=== PATIENT | male | born 1955 | race Caucasian/White ===

== ENCOUNTER → 2018-04-23 09:15 | Outpatient (REF) | payer MEDICARE, SELFPAY ==
[2018-04-26 16:37] LABS: Codeine Negative ng/mL (Cutoff: 25); Dihydrocodeine Negative ng/mL (Cutoff: 25); Hydrocodone Negative ng/mL (Cutoff: 25); Hydromorphone Negative ng/mL (Cutoff: 25); Morphine Negative ng/mL (Cutoff: 25); Naloxone Negative ng/mL (Cutoff: 25); Norhydrocodone Negative ng/mL (Cutoff: 25); Noroxycodone 154 ng/mL (Cutoff: 25); Noroxymorphone Negative ng/mL (Cutoff: 25); Opiates Interpretation Positive.
== END ==
LOC: NCHCN 09:15
PROVIDERS: PCP Family Medicine; Visit Provider Family Medicine
DX: G89.29 Other chronic pain (principal); F11.120 Opioid abuse with intoxication, uncomplicated
CPT/HCPCS: 80361

== ENCOUNTER 2019-04-25 15:03 | Outpatient (REF) | payer MEDICARE, SELFPAY ==
[2019-04-25 20:10] LABS: ALT 35 U/L (16-63); AST 26 U/L (15-37); Albumin 2.6 g/dL (3.4-5.0); Alkaline Phosphatase 77 U/L (46-116); Anion Gap 7.5 mmol/L (3-11); BUN 20 mg/dL (7-18); Bilirubin, Total 0.4 mg/dL (0.2-1.0); CO2 27.5 mmol/L (21.0-32.0); Calcium 8.3 mg/dL (8.5-10.1); Chloride 107 mmol/L (98-107); Glucose 83 mg/dL (70-100); Potassium 4.5 mmol/L (3.5-5.1); Sodium 142 mmol/L (136-145); Total Protein 7.2 g/dL (6.4-8.2)
[2019-04-28 11:29] LABS: AFP Tumor Marker 2.5 ng/mL (<8.1)
[2019-04-28 14:48] LABS: HCV RNA Detection Quantitative Undetected IU/mL (UNDECT)
== END 2019-04-25 15:23 ==
LOC: NCHCN 15:03
PROVIDERS: PCP Family Medicine; Visit Provider Family Medicine
DX: B18.2 Chronic viral hepatitis C (principal); Z79.899 Other long term (current) drug therapy
CPT/HCPCS: 80053; 82105; 87522

== ENCOUNTER 2022-01-09 02:59 | Outpatient (RCR) | payer MEDICARE, SELFPAY ==
[2022-01-09 07:57] LABS: Abs Immature Grans 0.03 10^3/uL (0.0-0.06); Absolute Basophil Count 0.01 10^3/uL (0.0-0.2); Absolute Eosinophil Count 0.01 10^3/uL (0.0-0.7); Absolute Lymphocyte Count 2.18 10^3/uL (1.2-3.4); Absolute Monocyte Count 0.62 10^3/uL (0.1-0.8); Absolute Neutrophil Count 6.63 10^3/uL (1.2-6.7); Basophils % 0.1; Eosinophils % 0.1; HCT 44.2 % (40.0-50.0); HGB 14.4 g/dL (13.5-17.5); Immature Grans % 0.3; MCHC 32.6 % (32.0-36.0); MCV 89 fL (80-95); MPV 8.6 fL (8.0-11.0); Monocytes % 6.5; Platelet Count 337 10^3/uL (130-400); RBC 4.97 10^6/uL (4.36-5.78); RDW 13.2 % (11.8-14.1); RDW-SD 43.3 fL; WBC 9.48 10^3/uL (4.4-10.8)
[2022-01-09 08:29] LABS: ALT 18 U/L (16-63); AST 14 U/L (15-37); Albumin 3.6 g/dL (3.4-5.0); Alkaline Phosphatase 98 U/L (46-116); BUN 13 mg/dL (7-18); Bilirubin, Total 0.3 mg/dL (0.2-1.0); CREATININE 0.9 mg/dL (0.70-1.30); Calcium 8.9 mg/dL (8.5-10.1); Chloride 105 mmol/L (98-107); FREE T4 0.93 ng/dL (0.76-1.46); Glucose 118 mg/dL (74-106); Magnesium 2.1 mg/dL (1.8-2.4); Potassium 4.3 mmol/L (3.5-5.1); Sodium 140 mmol/L (136-145); TSH 1.06 uIU/mL (0.36-3.74); Total Protein 7.8 g/dL (6.4-8.2)
[2022-01-09] MEDS: Normal Saline Flush 10 ML SYR IVP (09:17)
== END 2022-01-24 23:59 | disposition home or self-care (01) ==
LOC: INF 02:59
PROVIDERS: PCP Family Medicine; Visit Provider Internal Medicine Medical Oncology
DX: C34.2 Malignant neoplasm of middle lobe, bronchus or lung (principal); Z79.899 Other long term (current) drug therapy; Z45.2 Encounter for adjustment and management of vascular access device
CPT/HCPCS: 36591; 80053; 83735; 84439; 84443; 85025

== ENCOUNTER 2022-02-06 03:03 | Outpatient (RCR) | payer MEDICARE, SELFPAY ==
[2022-01-25] MEDS: Normal Saline Flush 10 ML SYR IVP (10:22)
[2022-01-25] MEDS: Heparin 500 UNITS/5 ML SYRINGE (10:22)
[2022-01-25 10:34] LABS: HCT 38.6 % (40.0-50.0); HGB 12.7 g/dL (13.5-17.5); MCH 29.3 pg (27.0-33.0); MCHC 32.9 % (32.0-36.0); MCV 89 fL (80-95); MPV 8.4 fL (8.0-11.0); Platelet Count 203 10^3/uL (130-400); RBC 4.33 10^6/uL (4.36-5.78); RDW 13.5 % (11.8-14.1); RDW-SD 42.9 fL; WBC 2.92 10^3/uL (4.4-10.8)
[2022-01-25 10:55] LABS: Absolute Lymphocyte Count 1.78 10^3/uL (1.2-3.4); Absolute Monocyte Count 0.15 10^3/uL (0.1-0.8); Absolute Neutrophil Count 0.96 10^3/uL (1.2-6.7); Atypical Lymphocytes % 2; Bands % 2; Metamyelocytes % 1
[2022-01-25 10:56] LABS: Diff Comment Manual Differential; RBC Morphology Normal
[2022-01-25 11:00] LABS: ALT 24 U/L (16-63); AST 15 U/L (15-37); Albumin 3.7 g/dL (3.4-5.0); Alkaline Phosphatase 110 U/L (46-116); Anion Gap 8.1 mmol/L (3-11); BUN 15 mg/dL (7-18); Bilirubin, Total 0.3 mg/dL (0.2-1.0); CO2 24.9 mmol/L (21.0-32.0); CREATININE 0.9 mg/dL (0.70-1.30); Calcium 8.8 mg/dL (8.5-10.1); Chloride 106 mmol/L (98-107); FREE T4 0.96 ng/dL (0.76-1.46); Glucose 110 mg/dL (74-106); Potassium 4.3 mmol/L (3.5-5.1); Sodium 139 mmol/L (136-145); TSH 1.16 uIU/mL (0.36-3.74); Total Protein 7.6 g/dL (6.4-8.2)
[2022-02-06] MEDS: Normal Saline Flush 10 ML SYR IVP (09:34)
[2022-02-06 09:42] LABS: Abs Immature Grans 0.04 10^3/uL (0.0-0.06); Absolute Basophil Count 0.01 10^3/uL (0.0-0.2); Absolute Lymphocyte Count 2.69 10^3/uL (1.2-3.4); Absolute Monocyte Count 0.83 10^3/uL (0.1-0.8); Basophils % 0.1; HGB 11.7 g/dL (13.5-17.5); Immature Grans % 0.5; MCH 29.4 pg (27.0-33.0); MCHC 32.5 % (32.0-36.0); MCV 91 fL (80-95); MPV 8.6 fL (8.0-11.0); Monocytes % 11.1; Neutrophils % 52.3; Platelet Count 314 10^3/uL (130-400); RBC 3.98 10^6/uL (4.36-5.78); RDW-SD 49.8 fL; WBC 7.47 10^3/uL (4.4-10.8)
[2022-02-06 10:14] LABS: ALT 22 U/L (16-63); AST 15 U/L (15-37); Albumin 3.2 g/dL (3.4-5.0); Alkaline Phosphatase 94 U/L (46-116); Anion Gap 6.2 mmol/L (3-11); BUN 20 mg/dL (7-18); Bilirubin, Total 0.2 mg/dL (0.2-1.0); CO2 25.8 mmol/L (21.0-32.0); CREATININE 0.9 mg/dL (0.70-1.30); Calcium 8.2 mg/dL (8.5-10.1); Chloride 107 mmol/L (98-107); FREE T4 0.82 ng/dL (0.76-1.46); Glucose 111 mg/dL (74-106); Potassium 4.5 mmol/L (3.5-5.1); Sodium 139 mmol/L (136-145); TSH 0.97 uIU/mL (0.36-3.74); Total Protein 6.5 g/dL (6.4-8.2)
== END 2022-02-23 23:59 | disposition home or self-care (01) ==
LOC: INF 03:03
PROVIDERS: PCP Family Medicine; Visit Provider Internal Medicine Medical Oncology
DX: C78.2 Secondary malignant neoplasm of pleura (principal); C34.2 Malignant neoplasm of middle lobe, bronchus or lung; Z79.899 Other long term (current) drug therapy; Z45.2 Encounter for adjustment and management of vascular access device
CPT/HCPCS: 36591; 80053; 83735; 84439; 84443; 85025

== ENCOUNTER 2022-03-06 02:42 | Outpatient (RCR) | payer MEDICARE, SELFPAY ==
[2022-03-06] MEDS: Normal Saline Flush 10 ML SYR IVP (10:28)
[2022-03-06 10:35] LABS: Abs Immature Grans 0.03 10^3/uL (0.0-0.06); Absolute Basophil Count 0.01 10^3/uL (0.0-0.2); Absolute Lymphocyte Count 2.71 10^3/uL (1.2-3.4); Absolute Monocyte Count 0.54 10^3/uL (0.1-0.8); Absolute Neutrophil Count 4.57 10^3/uL (1.2-6.7); Basophils % 0.1; HCT 39.9 % (40.0-50.0); HGB 13.6 g/dL (13.5-17.5); Immature Grans % 0.4; Lymphocytes % 34.5; MCH 30.2 pg (27.0-33.0); MCHC 34.1 % (32.0-36.0); MCV 89 fL (80-95); MPV 8.5 fL (8.0-11.0); Monocytes % 6.9; Neutrophils % 58.1; Platelet Count 291 10^3/uL (130-400); RDW-SD 49.2 fL; WBC 7.86 10^3/uL (4.4-10.8)
[2022-03-06 11:05] LABS: ALT 21 U/L (16-63); AST 16 U/L (15-37); Albumin 3.5 g/dL (3.4-5.0); Alkaline Phosphatase 90 U/L (46-116); Anion Gap 8.5 mmol/L (3-11); BUN 12 mg/dL (7-18); Bilirubin, Total 0.2 mg/dL (0.2-1.0); CO2 26.5 mmol/L (21.0-32.0); CREATININE 0.9 mg/dL (0.70-1.30); Calcium 8.8 mg/dL (8.5-10.1); Chloride 106 mmol/L (98-107); FREE T4 0.91 ng/dL (0.76-1.46); Glucose 129 mg/dL (74-106); Potassium 4.2 mmol/L (3.5-5.1); Sodium 141 mmol/L (136-145); TSH 1.07 uIU/mL (0.36-3.74)
== END 2022-03-26 23:59 | disposition home or self-care (01) ==
LOC: INF 02:42
PROVIDERS: PCP Family Medicine; Visit Provider Internal Medicine Medical Oncology
DX: C78.2 Secondary malignant neoplasm of pleura (principal); Z79.899 Other long term (current) drug therapy; Z45.2 Encounter for adjustment and management of vascular access device
CPT/HCPCS: 36591; 80053; 83735; 84439; 84443; 85025

== ENCOUNTER 2022-04-24 02:52 | Outpatient (RCR) | payer MEDICARE, SELFPAY ==
[2022-03-27] MEDS: Normal Saline Flush 10 ML SYR IVP (09:25)
[2022-03-27 09:37] LABS: Abs Immature Grans 0.01 10^3/uL (0.0-0.06); Absolute Lymphocyte Count 2.15 10^3/uL (1.2-3.4); Absolute Monocyte Count 0.42 10^3/uL (0.1-0.8); Absolute Neutrophil Count 0.96 10^3/uL (1.2-6.7); HCT 38.8 % (40.0-50.0); Immature Grans % 0.3; Lymphocytes % 60.7; MCHC 33.5 % (32.0-36.0); MCV 89 fL (80-95); MPV 8.8 fL (8.0-11.0); Monocytes % 11.9; Neutrophils % 27.1; Platelet Count 246 10^3/uL (130-400); RBC 4.34 10^6/uL (4.36-5.78); RDW 14.9 % (11.8-14.1); RDW-SD 48.7 fL; WBC 3.54 10^3/uL (4.4-10.8)
[2022-03-27 10:02] LABS: ALT 27 U/L (16-63); AST 20 U/L (15-37); Albumin 3.6 g/dL (3.4-5.0); Alkaline Phosphatase 88 U/L (46-116); Anion Gap 5.5 mmol/L (3-11); BUN 16 mg/dL (7-18); Bilirubin, Total 0.2 mg/dL (0.2-1.0); CO2 28.5 mmol/L (21.0-32.0); CREATININE 0.9 mg/dL (0.70-1.30); Calcium 8.9 mg/dL (8.5-10.1); Chloride 104 mmol/L (98-107); FREE T4 0.94 ng/dL (0.76-1.46); Glucose 110 mg/dL (74-106); Magnesium 1.9 mg/dL (1.8-2.4); Potassium 4.2 mmol/L (3.5-5.1); Sodium 138 mmol/L (136-145); TSH 1.16 uIU/mL (0.36-3.74); Total Protein 7.3 g/dL (6.4-8.2)
[2022-04-03] MEDS: Normal Saline Flush 10 ML SYR IVP (08:31)
[2022-04-03 08:41] LABS: Abs Immature Grans 0.02 10^3/uL (0.0-0.06); Absolute Basophil Count 0.01 10^3/uL (0.0-0.2); Absolute Lymphocyte Count 1.74 10^3/uL (1.2-3.4); Absolute Monocyte Count 0.48 10^3/uL (0.1-0.8); Absolute Neutrophil Count 4.47 10^3/uL (1.2-6.7); Basophils % 0.1; HCT 38.6 % (40.0-50.0); HGB 13.1 g/dL (13.5-17.5); Immature Grans % 0.3; Lymphocytes % 25.9; MCH 30.3 pg (27.0-33.0); MCHC 33.9 % (32.0-36.0); MCV 89 fL (80-95); MPV 8.7 fL (8.0-11.0); Monocytes % 7.1; Neutrophils % 66.6; Platelet Count 289 10^3/uL (130-400); RBC 4.33 10^6/uL (4.36-5.78); RDW 14.7 % (11.8-14.1); RDW-SD 48.2 fL; WBC 6.72 10^3/uL (4.4-10.8)
[2022-04-03 09:12] LABS: ALT 23 U/L (16-63); AST 18 U/L (15-37); Albumin 3.4 g/dL (3.4-5.0); Alkaline Phosphatase 88 U/L (46-116); Anion Gap 6.4 mmol/L (3-11); BUN 13 mg/dL (7-18); Bilirubin, Total 0.2 mg/dL (0.2-1.0); CO2 26.6 mmol/L (21.0-32.0); CREATININE 0.9 mg/dL (0.70-1.30); Calcium 8.5 mg/dL (8.5-10.1); Chloride 108 mmol/L (98-107); FREE T4 0.88 ng/dL (0.76-1.46); Glucose 131 mg/dL (74-106); Magnesium 1.9 mg/dL (1.8-2.4); Potassium 4.1 mmol/L (3.5-5.1); Sodium 141 mmol/L (136-145); TSH 0.74 uIU/mL (0.36-3.74); Total Protein 7.1 g/dL (6.4-8.2)
[2022-04-24] MEDS: Normal Saline Flush 10 ML SYR IVP (07:39)
[2022-04-24 08:16] LABS: Abs Immature Grans 0.01 10^3/uL (0.0-0.06); Absolute Basophil Count 0.01 10^3/uL (0.0-0.2); Absolute Lymphocyte Count 2.46 10^3/uL (1.2-3.4); Absolute Monocyte Count 0.42 10^3/uL (0.1-0.8); Absolute Neutrophil Count 1.51 10^3/uL (1.2-6.7); Basophils % 0.2; HCT 36.3 % (40.0-50.0); HGB 12.1 g/dL (13.5-17.5); Immature Grans % 0.2; Lymphocytes % 55.8; MCH 30.3 pg (27.0-33.0); MCHC 33.3 % (32.0-36.0); MCV 91 fL (80-95); MPV 9.1 fL (8.0-11.0); Monocytes % 9.5; Neutrophils % 34.3; Platelet Count 239 10^3/uL (130-400); RDW 14.6 % (11.8-14.1); RDW-SD 48.4 fL; WBC 4.41 10^3/uL (4.4-10.8)
[2022-04-24 08:48] LABS: ALT 23 U/L (16-63); AST 16 U/L (15-37); Albumin 3.5 g/dL (3.4-5.0); Alkaline Phosphatase 86 U/L (46-116); Anion Gap 4.7 mmol/L (3-11); BUN 19 mg/dL (7-18); Bilirubin, Total 0.2 mg/dL (0.2-1.0); CO2 30.3 mmol/L (21.0-32.0); Calcium 8.9 mg/dL (8.5-10.1); Chloride 105 mmol/L (98-107); FREE T4 0.93 ng/dL (0.76-1.46); Glucose 125 mg/dL (74-106); Magnesium 1.8 mg/dL (1.8-2.4); Potassium 4.2 mmol/L (3.5-5.1); Sodium 140 mmol/L (136-145); TSH 1.52 uIU/mL (0.36-3.74); Total Protein 7.3 g/dL (6.4-8.2)
== END 2022-04-26 23:59 | disposition home or self-care (01) ==
LOC: INF 02:52
PROVIDERS: PCP Family Medicine; Visit Provider Internal Medicine Medical Oncology
DX: C34.2 Malignant neoplasm of middle lobe, bronchus or lung (principal); Z79.899 Other long term (current) drug therapy; Z45.2 Encounter for adjustment and management of vascular access device; C78.2 Secondary malignant neoplasm of pleura
CPT/HCPCS: 36591; 80053; 83735; 84439; 84443; 85025

== ENCOUNTER 2022-05-07 11:05 | Emergency (ER) | payer MEDICARE, SELFPAY ==
[2022-05-07 11:12] VITALS: BP 124/77; PULSE 98; RESP 20; TEMP 36; O2SAT 98
--- NOTE | 2022-05-07 11:15 | RT.EKG_ITS ---
APPROVED REPORT Exam: Resting ECG Reason for Exam: chest/back pain Patient Location: E HR:68 bpm ECG Measurements Heart Rate 68 AXIS ME 146 P 64 QRSd 99 QRS 73 QT 387 T 60 QTc 411 Conclusion Sinus rhythm...normal P axis, V-rate 60- 99
--- NOTE | 2022-05-07 11:32 | ED.GENADUL_ITS ---
Discharge Plan Disposition Patient Disposition: HOME Condition: Improving Discharge Details Clinical Impression: Back pain with left-sided radiculopathy Primary Care Provider: Lisa Bai V ED Provider: Rc Tobin Home Meds and New Rx's Prescriptions: New diazepam [Valium] 5 mg tablet 5 mg PO BID PRNQty: 10 0RF Continued multivitamin [Daily Vitamin] 1 EACH tablet 1 ea PO DAILY Label Comments: 02/01/16-patient states he no longertakes this. kg lamotrigine [Lamictal] 200 MG tablet 200 mg PO DAILY AM lorazepam 0.5 MG tablet 1 mg PO 0.5 AM 1.0 PM aspirin [Aspirin Low-Strength] 81 MG tablet,chewable 81 mg PO DAILY calcium carbonate-vitamin D3 [Calcium 600 + D(3)] 1 TAB tablet 1 tab PO DAILY Label Comments: 02/01/16-patient states he no longer takes this.kg ammonium lactate [Lac-Hydrin] 385 GM cream 1 ea Topical BID verapamil 360 MG capsule,ext rel. pellets 24 hr 360 mg PO DAILY epinephrine 0.3 MG/SYR auto-injector 0.3 ml IM PRN PRN nitroglycerin [Nitrostat] 0.3 MG tablet, sublingual 0.4 mg PO PRN PRN metoprolol tartrate 25 MG tablet 25 mg PO BID oxycodone 10 mg tablet 1 tab PO TID Label Comments: take 1 tablet by mouth three times a day if needed for pain rosuvastatin [Crestor] 20 mg tablet 20 tab PO DAILY Label Comments: take 1 tablet by mouth once daily pregabalin 100 mg capsule 1 cap PO QID Label Comments: take 1 capsule by mouth three times a day venlafaxine 150 mg capsule,extended release 24hr 300 cap PO DAILY AM Label Comments: take 2 capsules by mouth daily escitalopram oxalate 20 mg tablet 1.5 tab PO DAILY Label Comments: TAKE 1 AND 1/2 TABLETS BY MOUTH DAILY polyethylene glycol 3350 [Miralax] 17 gram Powder In Packet PO DAILY AM ibuprofen [Ibuprofen IB] 200 mg Tablet 400 mg PO PRN PRN Discharge Instructions Instructions: Back Pain (ED) Additional Instructions: At this time we discussed admission for pain control but you have declined. I am providing you a prescription of Valium, take as directed, this medication may cause drowsiness. In the short-term you may need to increase your dose of oxycodone to 1-1/2 times your dose for better pain control. Cool and/or warm compresses every 2 hours for 20 minutes. Gentle stretching as tolerated. Please watch for new or worsening symptoms and return to the ER for any concerns. Otherwise please contact both your primary care provider and oncology team tomorrow to discuss your ER visit, ongoing symptoms, CT findings of your MediPort terminating in your inferior vena cava, lymph nodes, and bilateral adrenal nodes. Medical Decision Making This is a 66-year-old gentleman with a past medical history of metastatic lung cancer, hypertension, former smoker, seizure disorder, depression, hyperlipidemia, chronic back pain, presenting for worsening left lower back pain that travels down his left leg which began over the past 24 hours. Patient states it comes in waves at times and feels like a spasm. He is unable to find a comfortable position and movement makes it worse. He has been taking his regular medications without relief. Clinically this appears to be musculoskeletal in nature but given his significant past medical history for metastatic disease, etc., believe obtaining a cardiac work-up including D-dimer is perfectly reasonable. In the meantime we will provide 1 mg IV Dilaudid Patient reports pain improved but continues to have spasms. We will provide 5 IV Valium The patient now appears to be resting comfortably, significant improvement of his overall presentation. Laboratory values reveal mild anemia, D-dimer elevated at 1429, electrolytes unremarkable, renal function normal. Magnesium 1.7 troponin less than 50 lipase 73 urinalysis trace blood no evidence of infection. Will pursue CTA of the thorax abdomen and pelvis given his metastatic disease, elevated D-dimer, and acute on chronic back pain CT as below IMPRESSION: 1. MediPort terminates in the inferior vena cava. Series 4, image 48. It can be withdrawn 10 cm.2. Spiculated nodule in the right lower lobe measures 12 x 10 mm. Series 6 image 440.. 8.2 mm pleural based nodule in the left lower lobe series 6, image 482. Fleischner Society follow up recommendations for incidental nodules are not indicated. Follow up per the patient's medical condition. 3. No evidence of pulmonary embolus to the segmental level. 4. No aneurysm of the aorta. 5. No dissection of the aorta. 6. Pathologic lymph node anterior to the trachea 20 x 14 mm. 7. Bilateral adrenal nodules. Left 25 x 20 mm and 26 Hounsfield units. Right adrenal nodule 2.4 x 1.7 cm and 40 Hounsfield units.. 8. Bilateral spondylolysis defect of the L5-S1 level, with grade 1 spondylolisthesis Case discussed with Dr. Leon, surgical services. The MediPort is functioning without difficulty, she does not recommend withdrawing whatsoever. This can be followed by his oncology team. Patient with known lung CA. pathologic lymph node anterior to the trachea, bilateral adrenal nodes. These can be followed through his primary care and oncology team We discussed the importance of outpatient follow-up. Patient was ambulatory slowly but steadily using his cane. We discussed adequate pain control and disposition. Given his age, multiple comorbidities, admission was offered for pain control but he declines. 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 He already has a cane and reports he does have a walker at home as well. Standard discharge and return precautions were provided. Patient understands, is agreeable to this plan, and has no additional questions or concerns upon discharge. This documentation was generated using [employer]) dictation system, please disregard any oddities of phrase or misspellings. Medical Records Medical records reviewed: Yes I reviewed the patient's medical records. Imaging Data Radiologic Study: Attestation: I personally reviewed and interpreted this imaging study as follows: Imaging: CT Scan Radiologist's impression: PROCEDURE INFORMATION: Exam: CTA Chest With Contrast CTA Abdomen and Pelvis With Contrast Exam date and time: 05/07/2022 1:45 PM Age: 66 years old Clinical indication: Other: Metastatic lung CA, back pain, elevated d dimer; Prior surgery; Surgery date: 6+ months; Surgery type: Port placement TECHNIQUE: Imaging protocol: Computed tomographic angiography of the chest with contrast. Computed tomographic angiography of the abdomen and pelvis with contrast. 3D re ndering (Not supervised by radiologist): MIP and/or 3D reconstructed images were created by the technologist. Radiation optimization: All CT scans at this facility use at least one of these dose optimization techniques: automated exposure control; mA and/or kV adjustment per patient size (includes targeted exams where dose is matched to clinical indication); or iterative reconstruction. Contrast material: OMNIPAQUE 350; Contrast volume: 100 ml; Contrast route: INTRAVENOUS (IV); COMPARISON: No relevant prior studies available. FINDINGS: Tubes, catheters and devices: MediPort terminates in the i nferior vena cava. Series 4, image 48. It can be withdrawn 10 cm. VASCULATURE: Pulmonary arteries: No evidence of pulmonary embolus to the segmental level. Aorta: No aneurysm of the aorta. No dissection of the aorta. Celiac trunk and mesenteric arteries: No occlusion or significant stenosis. Renal arteries: No occlusion or significant stenosisRight iliac arteries: No occlusion or significant stenosis. Left iliac arteries: No occlusion or significant stenosis. CHEST: Lungs: Spiculated nodule in the right lower lobe measures 12 x 10 mm. Series 6 image 440.. 8.2 mm pleural based nodule in the left lower lobe series 6, image 482. Mild panlobular emphysematous changes. Mild panlobular emphysematous changes Pleural spaces: See Lungs finding. Heart: Unremarkable. No cardiomegaly. No pericardial effusion. ABDOMEN AND PELVIS: Liver: No mass. Gallbladder and bile ducts: Cholecystectomy Pancreas: Unremarkable. No mass. No ductal dilation. Spleen: Unremarkable. No splenomegaly. Adrenal glands: B ilateral adrenal nodules. Left 25 x 20 mm and 26 Hounsfield units. Right adrenal nodule 2.4 x 1.7 cm and 40 Hounsfield units.. Kidneys and ureters: Unremarkable. No solid mass. No hydronephrosis. Stomach and bowel: Findings consistent with constipation Appendix: No evidence of appendicitis. Intraperitoneal space: Unremarkable. No free air. No significant fluid collection. Urinary bladder: Unremarkable. No mass. Reproductive: Unremarkable as visualized. Lymph nodes: Pathologic lymph node anterior to the trachea 20 x 14 mm. Bones/joints: Bilateral spondylolysis defect of the L5-S1 level, with grade 1 spondylolisthesis.. Soft tissues: Unremarkable. IMPRESSION: 1. MediPort terminates in the inferior vena cava. Series 4, image 48. It can be withdrawn 10 cm. 2. Spiculated nodule in the right lower lobe measures 12 x 10 mm. Series 6 image 440.. 8.2 mm pleural based nodule in the left lower lobe series 6, image 482. Fleischner Society follow up recommendations for incidental nodules are not indicated. Follow up per the patient's medical condition. 3. No evidence of pulmonary embolus to the segmental level. 4. No aneurysm of the aorta. 5. No dissection of the aorta. 6. Pathologic lymph node anterior to the trachea 20 x 14 mm. 7. Bilateral adrenal nodules. Left 25 x 20 mm and 26 Hounsfield units. Right adrenal nodule 2.4 x 1.7 cm and 40 Hounsfield units.. 8. Bilateral spondylolysis defect of the L5-S1 level, with grade 1 spondylolisthesis.. Lab Data Lab results reviewed: Yes I reviewed the patient's lab results. Labs: Laboratory Tests Range/Units 05/07/22 05/07/22 05/07/22 12:03 12:14 12:14 WBC (4.4-10.8) 10^3/uL 8.84 RBC (4.36-5.78) 10^6/uL 4.23 L Hgb (13.5-17.5) g/dL 12.9 L Hct (40.0-50.0) % 38.5 L MCV (80-95) fL 91 MCH (27.0-33.0) pg 30.5 MCHC (32.0-36.0) % 33.5 RDW (11.8-14.1) % 14.5 H Plt Count (130-400) 10^3/uL 237 MPV (8.0-11.0) fL 8.6 Immature Gran % 0.3 Neutrophils % 64.0 Lymphocytes % 28.8 Monocytes % 6.8 Eosinophils % 0.0 Basophils % 0.1 Nucleated RBC % (0.0-0.3) % 0.0 Absolute Neutrophils (1.2-6.7) 10^3/uL 5.65 Absolute Lymphocytes (1.2-3.4) 10^3/uL 2.55 Absolute Monocytes (0.1-0.8) 10^3/uL 0.60 Absolute Eosinophils (0.0-0.7) 10^3/uL 0.00 Absolute Basophils (0.0-0.2) 10^3/uL 0.01 PT (9.3-11.0) sec INR (0.9-1.1) APTT (21.0-27.5) sec D-Dimer (<500) ng/mlFEU Sodium (136-145) mmol/L 140 Potassium (3.5-5.1) mmol/L 4.3 Chloride (98-107) mmol/L 105 Carbon Dioxide (21.0-32.0) mmol/L 28.0 Anion Gap (3-11) mmol/L 7.0 BUN (7-18) mg/dL 18 Creatinine (0.70-1.30) mg/dL 1.0 Est GFR (CKD-EPI 2020) (mL/min/1.73m2) 82.49 Glucose (74-106) mg/dL 105 Calcium (8.5-10.1) mg/dL 8.7 Magnesium (1.8-2.4) mg/dL 1.7 L Total Bilirubin (0.2-1.0) mg/dL 0.3 AST (15-37) U/L 14 L ALT (16-63) U/L 18 Alkaline Phosphatase (46-116) U/L 92 Troponin I (<or=60) ng/L < 50 Total Protein (6.4-8.2) g/dL 7.3 Albumin (3.4-5.0) g/dL 3.6 Lipase (73-393) U/L 73 Urine Color (Yellow) Urine Clarity (Clear) Urine pH (5-8) Ur Specific [place] (1.005-1.025) Urine Protein (Negative) mg/dL Urine Ketones (Negative) mg/dL Urine Blood (Negative) Urine Nitrite (Negative) Urine Bilirubin (Negative) Urine Urobilinogen (Up TO 0.2) EU/dL Ur Leukocyte Esterase (Negative) Urine RBC (0-2) HPF Urine WBC (0-5) HPF Ur Epithelial Cells (Negative) HPF Urine Crystals (Negative) HPF Urine Bacteria (Negative) HPF Urine Casts (Negative) LPF Urine Mucus (Negative) Ur Culture Indicated? Urine Glucose (Negative) mg/dL COVID-19 Source Nasal/Nares SARS-CoV-2 (PCR) (Negative) Negative Range/Units 05/07/22 05/07/22 05/07/22 12:14 13:15 14:42 WBC (4.4-10.8) 10^3/uL RBC (4.36-5.78) 10^6/uL Hgb (13.5-17.5) g/dL Hct (40.0-50.0) % MCV (80-95) fL MCH (27.0-33.0) pg MCHC (32.0-36.0) % RDW (11.8-14.1) % Plt Count (130-400) 10^3/uL MPV (8.0-11.0) fL Immature Gran % Neutrophils % Lymphocytes % Monocytes % Eosinophils % Basophils % Nucleated RBC % (0.0-0.3) % Absolute Neutrophils (1.2-6.7) 10^3/uL Absolute Lymphocytes (1.2-3.4) 10^3/uL Absolute Monocytes (0.1-0.8) 10^3/uL Absolute Eosinophils (0.0-0.7) 10^3/uL Absolute Basophils (0.0-0.2) 10^3/uL PT (9.3-11.0) sec 10.4 INR (0.9-1.1) 1.0 APTT (21.0-27.5) sec 31.9 H D-Dimer (<500) ng/mlFEU 1429 H Sodium (136-145) mmol/L Potassium (3.5-5.1) mmol/L Chloride (98-107) mmol/L Carbon Dioxide (21.0-32.0) mmol/L Anion Gap (3-11) mmol/L BUN (7-18) mg/dL Creatinine (0.70-1.30) mg/dL Est GFR (CKD-EPI 2020) (mL/min/1.73m2) Glucose (74-106) mg/dL Calcium (8.5-10.1) mg/dL Magnesium (1.8-2.4) mg/dL Total Bilirubin (0.2-1.0) mg/dL AST (15-37) U/L ALT (16-63) U/L Alkaline Phosphatase (46-116) U/L Troponin I (<or=60) ng/L < 50 Total Protein (6.4-8.2) g/dL Albumin (3.4-5.0) g/dL Lipase (73-393) U/L Urine Color (Yellow) Yellow Urine Clarity (Clear) Clear Urine pH (5-8) 6.5 Ur Specific [place] (1.005-1.025) 1.020 Urine Protein (Negative) mg/dL Negative Urine Ketones (Negative) mg/dL Negative Urine Blood (Negative) Trace-intact H Urine Nitrite (Negative) Negative Urine Bilirubin (Negative) Negative Urine Urobilinogen (Up TO 0.2) EU/dL 1.0 H Ur Leukocyte Esterase (Negative) Trace H Urine RBC (0-2) HPF 3-5 H Urine WBC (0-5) HPF 3-5 Ur Epithelial Cells (Negative) HPF Rare Urine Crystals (Negative) HPF Negative Urine Bacteria (Negative) HPF Rare Urine Casts (Negative) LPF Negative Urine Mucus (Negative) Negative Ur Culture Indicated? No Urine Glucose (Negative) mg/dL Negative COVID-19 Source SARS-CoV-2 (PCR) (Negative) ECG Data Attestation: I personally reviewed and interpreted this ECG (s) as follows: Interpretation: Sinus rhythm, ventricular rate of 68. No STEMI. HPI General Mode of arrival: ambulatory . Date/Time Provider Initiated Documentation: 05/07/22 11:17 . Limitations to Documentation: no limitations . Information obtained by: patient and family . History of Present Illness 66 year old M presents to the emergency department with the chief complaint of Back Pain, described as severe, with intensity rated at 9. Quality is described as stabbing, and is localized to the back and left. Patient extremity (LLE). Patient started experiencing this day(s) (1) and it has been constant. Immobilization improves symptom(s), Movement worsens symptoms . Patient notes denies chest pain, cough, fever/chills, nausea/vomiting and shortness of breath. Patient did receive the following treatments prior to arrival, other (Regular medications) Related Data Home Medications Medication Instructions Recorded Confirmed aspirin 81 mg chewable tablet 81 mg PO DAILY 11/26/12 05/07/22 (Aspirin Low-Strength) lamotrigine 200 mg tablet 200 mg PO DAILY AM 11/26/12 05/07/22 (Lamictal) lorazepam 0.5 mg tablet 1 mg PO 0.5 AM 1.0 PM 11/26/12 05/07/22 multivitamin (Daily Vitamin tablet) 1 ea PO DAILY 11/26/12 05/07/22 ammonium lactate 12 % topical 1 ea topical BID 10/06/13 02/04/16 cream (Lac-Hydrin) calcium carbonate 600 mg-vitamin 1 tab PO DAILY 10/06/13 02/01/16 D3 5 mcg (200 unit) tablet (Calcium 600 + D(3)) epinephrine 0.3 mg/0.3 mL 0.3 ml IM PRN PRN 10/06/13 05/07/22 injection, auto-injector verapamil 360 mg 24 hr 360 mg PO DAILY 10/06/13 05/07/22 capsule,extended release metoprolol tartrate 25 mg tablet 25 mg PO BID 02/01/16 05/07/22 nitroglycerin 0.3 mg sublingual 0.4 mg PO PRN PRN 02/01/16 05/07/22 tablet (Nitrostat) diazepam 5 mg tablet (Valium) 5 mg PO BID PRN #10 tabs 05/07/22 escitalopram oxalate 20 mg tablet 1.5 tab PO DAILY 05/07/22 05/07/22 ibuprofen 200 mg tablet (Ibuprofen 400 mg PO PRN PRN 05/07/22 05/07/22 IB) oxycodone 10 mg tablet 1 tab PO TID 05/07/22 05/07/22 polyethylene glycol 3350 17 gram g PO DAILY AM 05/07/22 oral powder packet (Miralax) pregabalin 100 mg capsule 1 cap PO QID 05/07/22 05/07/22 rosuvastatin 20 mg tablet (Crestor) 20 tab PO DAILY 05/07/22 05/07/22 venlafaxine 150 mg 300 cap PO DAILY AM 05/07/22 05/07/22 capsule,extended release 24 hr Previous Rx's Medication Instructions Recorded diazepam 5 mg tablet (Valium) 5 mg PO BID PRN #10 tabs 05/07/22 Allergies Allergy/AdvReac Type Severity Reaction Status Date / Time morphine Allergy Severe seizures Unverified 05/07/22 11:37 [id number] Antimigraine Allergy Severe seizures Unverified 05/07/22 11:37 Agents venom-honey bee Allergy Severe Anaphylaxsi Unverified 05/07/22 11:37 [bee venom (honey bee)] s zolmitriptan [From Zomig] Allergy Severe seizure Unverified 05/07/22 11:37 General Stated Complaint: Nk/Back Pain HARIS: 2 Review of Systems Constitutional Constitutional: Denies fever(s) and Denies weakness Cardiovascular Cardiovascular: Denies chest pain and Denies dyspnea Respiratory Respiratory: Denies dyspnea Gastrointestinal Gastrointestinal: Denies abdominal pain, Reports constipation (X3 days), Denies nausea and Denies vomiting Genitourinary Genitourinary: Denies dysuria Musculoskeletal Musculoskeletal: Reports back pain, Denies numbness, Reports stiffness and Denies tingling Integumentary/Breasts Skin/Breast: Denies rash Neurologic Neurologic: Denies numbness, Denies tingling and Denies weakness Hematologic/Lymphatic Hematologic/Lymphatic: Denies easy bleeding and Denies easy bruising PFSH All Active Problems (Updated 05/07/22 @ 15:29 by RUTH Levine) Back pain with left-sided radiculopathy (Acute) Social History Smoking/Tobacco Use Status: Current every day Smoking risk assessment performed?: Yes Alcohol Intake: former Drug use: Never Do you feel safe at home: Yes Do you feel safe in your relationship?: Yes Additional Social history: pt is a . he has custody of his teenage grandchildren Exam Const General: cooperative, no acute distress and other (Appears uncomfortable) Orientation: alert, awake and oriented x3 HENMT Head: normal to inspection, normocephalic and atraumatic Eyes General: appearance normal, both eyes and all related structures Conjunctivae: conjunctivae normal Neck Neck: normal visual inspection, full ROM, no meningeal signs, trachea midline and supple Resp Effort & Inspection: normal respiratory effort and able to speak in complete sentences Auscultation: diminished lung sounds bilaterally in the lower lung carney Cardio Rate: regular rate Rhythm: regular rhythm GI Palpation: soft, not firm, no guarding, no pulsatile masses and nontender Auscultation: normal bowel sounds Back/Spine/Pelvis Back: no CVA tenderness and back tenderness (Left lumbar) Thoracic/Lumbar Spine: straight leg raise positive (Left 10 degrees, negative right) Skin General skin exam: no rashes or lesions noted Neuro General: patient alert, patient awake, patient oriented x3, moves all extremities and no focal motor deficits Cognition: normal cognition Speech: speech normal Motor: muscle tone normal throughout and strength 5/5 throughout Sensory Exam: no sensory deficits noted Extrem General: normal to inspection, full ROM, capillary refill normal, no pedal edema and no calf tenderness Psych Appearance: grossly normal Mental Status: mental status grossly normal Course Vital Signs Vital signs: Vital Signs Temperature 36 C L 05/07/22 11:12 Pulse 98 H 05/07/22 11:12 Respiratory Rate 20 05/07/22 11:12 Blood Pressure 124/77 05/07/22 11:12 Pulse Oximetry 98 05/07/22 11:12 Temperature 36 C L 05/07/22 11:12 Pulse 98 H 05/07/22 11:12 Respiratory Rate 05/07/22 11:12 Blood Pressure 124/77 05/07/22 11:12 Blood Pressure Position Sitting 05/07/22 11:12 Pulse Oximetry 98 05/07/22 11:12 Oxygen Delivery Method Room Air 05/07/22 11:12 Oxygen Flow Rate 0 05/07/22 11:12 Pain Level 10 05/07/22 11:12
[2022-05-07] MEDS: HYDROmorphone 2 MG/ML SYR 1 MG IVP (12:17)
[2022-05-07] MEDS: Normal Saline 1,000 ML 125 ML IV (12:18)
[2022-05-07] MEDS: Lidocaine 1% Multi-Dose 20 ML VIAL (12:18)
[2022-05-07 12:20] LABS: Abs Immature Grans 0.03 10^3/uL (0.0-0.06); Absolute Basophil Count 0.01 10^3/uL (0.0-0.2); Absolute Lymphocyte Count 2.55 10^3/uL (1.2-3.4); Absolute Neutrophil Count 5.65 10^3/uL (1.2-6.7); Basophils % 0.1; HCT 38.5 % (40.0-50.0); HGB 12.9 g/dL (13.5-17.5); Immature Grans % 0.3; Lymphocytes % 28.8; MCH 30.5 pg (27.0-33.0); MCHC 33.5 % (32.0-36.0); MCV 91 fL (80-95); MPV 8.6 fL (8.0-11.0); Monocytes % 6.8; Platelet Count 237 10^3/uL (130-400); RBC 4.23 10^6/uL (4.36-5.78); RDW 14.5 % (11.8-14.1); RDW-SD 48.4 fL; WBC 8.84 10^3/uL (4.4-10.8)
[2022-05-07 12:26] LABS: Source Nasal/Nares
[2022-05-07 12:42] LABS: PTT Activated 31.9 sec (21.0-27.5); Prothrombin Time 10.4 sec (9.3-11.0)
[2022-05-07 12:47] LABS: ALT 18 U/L (16-63); AST 14 U/L (15-37); Albumin 3.6 g/dL (3.4-5.0); Alkaline Phosphatase 92 U/L (46-116); BUN 18 mg/dL (7-18); Bilirubin, Total 0.3 mg/dL (0.2-1.0); Calcium 8.7 mg/dL (8.5-10.1); Chloride 105 mmol/L (98-107); Estimated GFR 82.49 (mL/min/1.73m2); Glucose 105 mg/dL (74-106); Lipase 73 U/L (73-393); Magnesium 1.7 mg/dL (1.8-2.4); Potassium 4.3 mmol/L (3.5-5.1); Sodium 140 mmol/L (136-145); Total Protein 7.3 g/dL (6.4-8.2); Troponin I < 50 ng/L (<or=60)
[2022-05-07 12:58] LABS: COVID-19 PCR Negative (Negative)
--- NOTE | 2022-05-07 13:15 | DI.CT_ITS ---
Exam(s) CT THORAX ABD/PEL CTA EXAM: CT THORAX ABD/PEL CTA CLINICAL HISTORY: metastatic lung CA, Back pain, elevated dimer. TECHNIQUE: Imaging Protocol: Axial computed tomography images with coronal and sagittal reformatted images were created and reviewed CONTRAST MATERIAL: Intravenous: Omnipaque 350 Contrast volume:100 ml Oral: None COMPARISON: MR MRI - LUMBAR SPINE WO CONTRAST from 03/28/2013 FINDINGS: CHEST: AORTA: Diameter of the ascending thoracic aorta is normal. Aortic arch and descending thoracic aorta diameter are upper normal. There is no evidence of dissection. The infrarenal abdominal aorta is a therosclerotic but exhibits maximum external diameter of less than 2 cm. Common iliac arteries exhib it mild dilatation of the right common iliac artery (1.4 cm diameter). Moderate atherosclerotic invo lvement. No tight stenosis at nor distal to the aortic bifurcation. The common femoral arteries exh ibits some atherosclerotic disease but no aneurysms. Visualized proximal SFA arteries are patent. Celiac and superior mesenteric arteries are patent. Inferior mesenteric artery is patent. Renal art eries are patent. No tight stenosis nor calcified plaque. Kidneys exhibit normal size. PULMONARY ARTERIES: No central filling defects. LUNGS: No confluent infiltrates nor pleural effusions. Nodular infiltrate in the right lung base/rig ht lower lobe measuring 11 x 12 millimeters noted. This requires follow-up. There is also an 8 x 6 millimeter subpleural nodule in the posterior basal segment left lower lobe. No pleural effusions on either side. No focal findings in the trachea and mainstem bronchi. MEDIASTINUM: Distal tip of Port-A-Cath is in the lower right atrium,, actually at the junction of the right atrium and inferior vena cavum. This is lower than typical location. Visualized thyroid unre markable. There is no adenopathy in the anterior mediastinal fat. Slightly enlarged pretracheal lym ph node.. No subcarinal adenopathy. Few slightly prominent lymph nodes in the right hilum. Left hi lum unremarkable. No axillary adenopathy. No supraclavicular adenopathy. CARDIAC: Heart size normal. No pericardial effusion. No aortic dissection. No shift of the interve ntricular septum. AORTA: As above. ABDOMEN: There is no ascites. LIVER: There are no focal hepatic lesions nor dilatation of intrahepatic ducts. GALLBLADDER/BILIARY: Gallbladder surgically absent. CBD is not dilated. PANCREAS: No evidence of pancreatic mass nor dilatation of the pancreatic duct. SPLEEN: Spleen is not enlarged. There are no intrasplenic lesions. ADRENALS: There are hypodense masses in both adrenal glands, both similar in appearance and size. On the right side measures 2.1 x 1.6 cm. On the left side measures 2.7 by 2.6 cm.. Both measure densi ty greater than 10 Hounsfield units KIDNEYS: No cysts evident. No calculi nor hydronephrosis. No solid renal masses. ABDOMINAL AORTA: As above LYMPH NODES: There is no retroperitoneal nor para-aortic adenopathy. No obvious mesenteric masses. ABDOMINAL WALL: No evidence of significant anterior abdominal wall hernia. GI: There is no evidence of bowel obstruction, free air, nor abscess.Abundant fecal material througho ut the colon, including the rectum. PELVIS: LYMPH NODES: There is no intrapelvic nor inguinal adenopathy. GI: No evidence of appendicitis.No evidence of sigmoid diverticulitis. URINARY BLADDER: No calculi nor masses evident REPRODUCTIVE: Prostate size normal. Seminal vesicles unremarkable. OSSEOUS: No lytic osseous lesions evident. Anterolisthesis L5 upon S1 due to bilateral pars defects. Also disc space narrowing at this level. IMPRESSION: 1. No significant aneurysm nor dissection in the thoracic and abdominal aortas. 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 No aneurysm in the left comm on iliac artery. 2. There is a 12 x 11 millimeter nodular infiltrate in the right lower lobe and a slightly smaller no dule in the left lower lobe. These require appropriate follow-up ensure stability-lack of growth. N o associated pleural effusions. 3. Few slightly prominent lymph nodes in the right hilum in pretracheal region. No gross lymphadenop athy. 4. Distal tip of the Port-A-Cath is noted to be in the lower aspect of the right atrium at the entran ce site of the inferior vena cavum. 5. Bilateral hypodense adrenal masses but with density units greater than 10 HU and therefore not ne cessarily benign adenomas. Recommend noninfused MRI adrenal imaging with in and out of phase sequenc es to determine if these are benign adenomas or more concerning pathology such as metastatic disease. 6. other findings as above RADIATION DOSE DELIVERED: 1,114.59mGy.cm Total DLP DATA REPOSITORY: All CT scans at this facility are submitted to the National Radiology Data Registry (NRDR) Dose Index Registry (DIR) with the [employer] (ACR). RADIATION OPTIMIZATION: All CT scans at this facility use at least one of these dose optimization te chniques: automated exposure control; mA and/or kV adjustment per patient size (includes targeted exa ms where dose is matched to clinical indication); or iterative reconstruction.
[2022-05-07 13:23] LABS: Bilirubin Negative (Negative); Blood Trace-intact (Negative); Clarity Clear (Clear); Glucose Negative (Negative); Ketones Negative (Negative); Leukocyte Esterase Trace (Negative); Nitrite Negative (Negative); pH 6.5 (5-8)
[2022-05-07 13:25] LABS: D-Dimer 1429 ng/mlFEU (<500)
[2022-05-07 13:33] LABS: Bacteria Rare HPF (Negative); C & S Indicated? No; Casts Negative LPF (Negative); Crystals Negative HPF (Negative); Epithelial Cells Rare HPF (Negative); Mucus Negative (Negative)
[2022-05-07] MEDS: diazePAM 10 MG/2 ML SYR 5 MG IVP (13:40)
[2022-05-07] MEDS: Omnipaque 350 MG/ML 100 ML BTL IJ (14:01)
[2022-05-07 14:03] VITALS: BP 111/70; PULSE 58; RESP 15; TEMP 36.5; O2SAT 95
[2022-05-07] MEDS: Normal Saline Flush 10 ML SYR IVP (14:03)
--- NOTE | 2022-05-07 14:54 | DI.VRAD_ITS ---
Addendum created by Lamin Torres MD on 05/07/2022 3:01:07 PM EDT: Addendum: With reference to the bilateral adrenal nodules,Non-emergent adrenal CT is recommended. Non-emergent chemical shift MRI (CS-MR) may be considered. (Reference: Reginald) References: Reginald YOON, et al. Management of Incidental Adrenal Masses: A White Paper of the ACR Incidental Findings Committee. J Am Curtis Radiol. 2017;14(8):8889-3709. Addendum created by Lamin Torres MD on 05/07/2022 3:00:03 PM EDT: THIS REPORT CONTAINS FINDINGS THAT MAY BE CRITICAL TO PATIENT CARE. The findings were verbally communicated via telephone conference with Rc Tobin at 2:59 PM EDT on 05/07/2022. The findings were acknowledged and understood. Initial report created on 05/07/2022 2:53:28 PM EDT: PROCEDURE INFORMATION: Exam: CTA Chest With Contrast CTA Abdomen and Pelvis With Contrast Exam date and time: 05/07/2022 1:45 PM Age: 66 years old Clinical indication: Other: Metastatic lung CA, back pain, elevated d dimer; Prior surgery; Surgery date: 6+ months; Surgery type: Port placement TECHNIQUE: Imaging protocol: Computed tomographic angiography of the chest with contrast. Computed tomographic angiography of the abdomen and pelvis with contrast. 3D rendering (Not supervised by radiologist): MIP and/or 3D reconstructed images were created by the technologist. Radiation optimization: All CT scans at this facility use at least one of these dose optimization techniques: automated exposure control; mA and/or kV adjustment per patient size (includes targeted exams where dose is matched to clinical indication); or iterative reconstruction. Contrast material: OMNIPAQUE 350; Contrast volume: 100 ml; Contrast route: INTRAVENOUS (IV); COMPARISON: No relevant prior studies available. FINDINGS: Tubes, catheters and devices: MediPort terminates in the inferior vena cava. Series 4, image 48. It can be withdrawn 10 cm. VASCULATURE: Pulmonary arteries: No evidence of pulmonary embolus to the segmental level. Aorta: No aneurysm of the aorta. No dissection of the aorta. Celiac trunk and mesenteric arteries: No occlusion or significant stenosis. Renal arteries: No occlusion or significant stenosis. Right iliac arteries: No occlusion or significant stenosis. Left iliac arteries: No occlusion or significant stenosis. CHEST: Lungs: Spiculated nodule in the right lower lobe measures 12 x 10 mm. Series 6 image 440.. 8.2 mm pleural based nodule in the left lower lobe series 6, image 482. Mild panlobular emphysematous changes. Mild panlobular emphysematous changes Pleural spaces: See Lungs finding. Heart: Unremarkable. No cardiomegaly. No pericardial effusion. ABDOMEN AND PELVIS: Liver: No mass. Gallbladder and bile ducts: Cholecystectomy Pancreas: Unremarkable. No mass. No ductal dilation. Spleen: Unremarkable. No splenomegaly. Adrenal glands: Bilateral adrenal nodules. Left 25 x 20 mm and 26 Hounsfield units. Right adrenal nodule 2.4 x 1.7 cm and 40 Hounsfield units.. Kidneys and ureters: Unremarkable. No solid mass. No hydronephrosis. Stomach and bowel: Findings consistent with constipation Appendix: No evidence of appendicitis. Intraperitoneal space: Unremarkable. No free air. No significant fluid collection. Urinary bladder: Unremarkable. No mass. Reproductive: Unremarkable as visualized. Lymph nodes: Pathologic lymph node anterior to the trachea 20 x 14 mm. Bones/joints: Bilateral spondylolysis defect of the L5-S1 level, with grade 1 spondylolisthesis.. Soft tissues: Unremarkable. IMPRESSION: 1. MediPort terminates in the inferior vena cava. Series 4, image 48. It can be withdrawn 10 cm. 2. Spiculated nodule in the right lower lobe measures 12 x 10 mm. Series 6 image 440.. 8.2 mm pleural based nodule in the left lower lobe series 6, image 482. Fleischner Society follow up recommendations for incidental nodules are not indicated. Follow up per the patient's medical condition. 3. No evidence of pulmonary embolus to the segmental level. 4. No aneurysm of the aorta. 5. No dissection of the aorta. 6. Pathologic lymph node anterior to the trachea 20 x 14 mm. 7. Bilateral adrenal nodules. Left 25 x 20 mm and 26 Hounsfield units. Right adrenal nodule 2.4 x 1.7 cm and 40 Hounsfield units.. 8. Bilateral spondylolysis defect of the L5-S1 level, with grade 1 spondylolisthesis.. Dictated and Authenticated by: Lamin Torres MD. Ordering:SERINA Tatum MD
[2022-05-07 15:16] LABS: Troponin I < 50 ng/L (<or=60)
== END 2022-05-07 16:02 | disposition home or self-care (01) ==
PROVIDERS: Emergency Provider Physician Assistant; PCP Family Medicine
DX: M54.16 Radiculopathy, lumbar region (principal); D64.9 Anemia, unspecified; I10 Essential (primary) hypertension; G40.909 Epilepsy, unspecified, not intractable, without status epilepticus; F17.200 Nicotine dependence, unspecified, uncomplicated; Z20.822 Contact with and (suspected) exposure to COVID-19; Z85.118 Personal history of other malignant neoplasm of bronchus and lung; R79.1 Abnormal coagulation profile
CPT/HCPCS: 36415; 71275; 80053; 83690; 87635; 93005; 96361; 96374; 96375; 99285; 74174; 81003; 81015; 83735; 84484; 85025; 85379; 85610; 85730; 93010; J1170; J3360; J3490

== ENCOUNTER 2022-05-09 13:20 | Emergency (ER) | payer MEDICARE, SELFPAY ==
[2022-05-09 13:27] VITALS: BP 118/66; PULSE 61; RESP 18; TEMP 36.8; O2SAT 99
--- NOTE | 2022-05-09 14:19 | ED.GENADUL_ITS ---
Discharge Plan Disposition Patient Disposition: HOME Condition: Improving Discharge Details Clinical Impression: Bulging of lumbar intervertebral disc, Acute exacerbation of chronic low back pain Primary Care Provider: Bety Snowden ED Provider: Ne Lynn Home Meds and New Rx's Prescriptions: New prednisone 20 mg tablet See Rx Instructions .ROUTE .COMPLEX Qty: 18 0RF Rx Instructions: Take 3 tabs daily for 3 days, then 2 tabs daily for 3 days, then 1 tab daily for 3 days. diazepam 5 mg tablet 5 mg PO TID PRN (Reason: muscle spasm) Qty: 10 0RF Continued lamotrigine [Lamictal] 200 MG tablet 200 mg PO DAILY AM lorazepam 0.5 MG tablet 1 mg PO 0.5 AM 1.0 PM verapamil 360 MG capsule,ext rel. pellets 24 hr 360 mg PO DAILY epinephrine 0.3 MG/SYR auto-injector 0.3 ml IM PRN PRN nitroglycerin [Nitrostat] 0.3 MG tablet, sublingual 0.4 mg PO PRN PRN metoprolol tartrate 25 MG tablet 25 mg PO 1XD oxycodone 10 mg tablet 1 tab PO TID Label Comments: take 1 tablet by mouth three times a day if needed for pain rosuvastatin [Crestor] 20 mg tablet 20 tab PO DAILY Label Comments: take 1 tablet by mouth once daily pregabalin 100 mg capsule 1 cap PO QID Label Comments: take 1 capsule by mouth three times a day venlafaxine 150 mg capsule,extended release 24hr 300 cap PO DAILY AM Label Comments: take 2 capsules by mouth daily escitalopram oxalate 20 mg tablet 1.5 tab PO DAILY Label Comments: TAKE 1 AND 1/2 TABLETS BY MOUTH DAILY polyethylene glycol 3350 [Miralax] 17 gram Powder In Packet PO DAILY AM ibuprofen [Ibuprofen IB] 200 mg Tablet 400 mg PO PRN PRN diazepam [Valium] 5 mg tablet 5 mg PO BID PRN (Reason: muscle spasm) Qty: 10 0RF Discharge Instructions Instructions: Lumbar Disc Herniation (ED), Chronic Back Pain (DC) Additional Instructions: Your imaging from your emergency department visit on May 07 noted that you have disc bulging in your lower back which may be the source of your pain. Prescriptions for steroids and muscle relaxers have been sent electronically to your pharmacy to take as directed. Continue your oxycodone as needed and directed for pain. Call your oncologist to discuss that you are taking steroids and if there needs to be any change in your treatment plan for starting immunotherapy next week. Follow-up with your primary care doctor in 1 week. Return to the emergency department with any worsening or new concerning symptoms such as loss of bowel or bladder function, leg weakness, difficulty ambulating, worsening pain or any other concerns. Discharge Data Discharge Physician: Ne Lynn Medical Decision Making 1430 -- 66-year-old male with a history of metastatic lung cancer to lymph nodes and adrenal gland who recently finished chemotherapy with plans to start immunotherapy next week, chronic back pain on oxycodone, former smoker, hyperlipidemia presents with persistent mid to lower back pain with radiation down his left leg for the past 3 days. Has had chronic similar pain in the past but states it is more intense than usual. No new cauda equina symptoms. Patient appears uncomfortable but nontoxic. His back is normal to inspection and tenderness throughout the distal midline T and throughout his L-spine. He is moving all extremities without focal deficits. He has neurovascularly intact. As patient had a CTA chest abdomen pelvis on 05/07, these images were reviewed with Dr. Campbell today and she has included an addendum review of the T and L- spine so we will hold on additional imaging at this time. CT THORAX ? ABD/PEL CTA Addendum: The thoracic and lumbar spine were were reviewed. There are small endplate osteophytes in the thoracic region. There is mild narrowing anteriorly of the disc spaces but no visible posterior bulging. No compression fractures, lytic or blastic lesions. The L1 vertebral body shows a smoothly marginated cyst. Mild disc bulging is seen at L3-4. There is moderate bulging of the L4-5 disc. There is more pronounced disc bulging at L5-S1 which show causes bilateral neural foraminal narrowing. There is bilateral L5 spondylolysis and mild L5-S1 spondylo listhesis. There are endplate osteophytes as well as degenerative endplate sclerosis. Dictated By: Ramona Campbell M.D.? 05/09/349722 Will place an IV and give a dose of Dilaudid 1 mg and reassess. 1600 --patient reassessed and he feels much better and is still going home. Discussed with patient that considering his mild to moderate disc bulge at L3- S1, can consider treatment with steroids to help with inflammation which patient is agreeable to. Advised that he should discuss with his oncologist if there are any recommendations or changes in his treatment plan for immunotherapy next week while taking steroids. He states he recently refilled his oxycodone. He is requesting a prescription for Valium which was sent electronically to his pharmacy in addition to a prescription for prednisone. Advised to follow-up with his primary care doctor for reassessment and management of his chronic pain and to return here immediately if he develops any worsening or new concerning symptoms consistent with cauda equina syndrome. Medical Records Medical records reviewed: Yes I reviewed the patient's medical records. Medical records narrative: 05/07/22 CTA chest/abdomen/pelvis IMPRESSION: 1. No significant aneurysm nor dissection in the thoracic and abdominal aortas.? 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 No aneurysm in the left common iliac artery. 2. There is a 12 x 11 millimeter nodular infiltrate in the right lower lobe and a slightly smaller nodule in the left lower lobe.? These require appropriate follow-up ensure stability-lack of growth.? No associated pleural effusions. 3. Few slightly prominent lymph nodes in the right hilum in pretracheal region.? No gross lymphadenopathy. 4. Distal tip of the Port-A-Cath is noted to be in the lower aspect of the right atrium at the entrance site of the inferior vena cavum. 5.? Bilateral hypodense adrenal masses but with density units greater than 10 HU and therefore not necessarily benign adenomas.? Recommend noninfused MRI adrenal imaging with in and out of phase sequences to determine if these are benign adenomas or more concerning pathology such as metastatic disease. HPI General Mode of arrival: wheelchair . Date/Time Provider Initiated Documentation: 05/09/22 13:26 . Limitations to Documentation: no limitations . Information obtained by: patient . HPI Narrative: Patient is a 56-year-old male with a history of metastatic lung cancer, former smoker, chronic back pain on chronic oxycodone, hyperlipidemia presents with persistent mid to lower back pain for the past 3 days. Patient states he has had similar back pain occurring over the past several years but states this is consistent with a usual flareup but more intense than usual. Patient was seen here over the weekend for his pain and had CT chest abdomen and pelvis which noted multiple chronic findings and was treated for his pain and discharged home. He was offered admission at that time but declined. Patient states he was told to come to the ER today for his persistent pain by his oncologist for pain control and admission. Patient denies any fever, chest pain, shortness of breath, abdominal pain, dysuria, hematuria, bowel or bladder incontinence, saddle anesthesia. He admits to chronic left leg pain and tingling associated w ith his back but denies any worsening of this. He states he took oxycodone and Valium earlier today without relief. Related Data Home Medications Medication Instructions Recorded Confirmed lamotrigine 200 mg tablet 200 mg PO DAILY AM 11/26/12 05/07/22 (Lamictal) lorazepam 0.5 mg tablet 1 mg PO 0.5 AM 1.0 PM 11/26/12 05/07/22 epinephrine 0.3 mg/0.3 mL 0.3 ml IM PRN PRN 10/06/13 05/07/22 injection, auto-injector verapamil 360 mg 24 hr 360 mg PO DAILY 10/06/13 05/07/22 capsule,extended release metoprolol tartrate 25 mg tablet 25 mg PO 1XD 02/01/16 05/07/22 nitroglycerin 0.3 mg sublingual 0.4 mg PO PRN PRN 02/01/16 05/07/22 tablet (Nitrostat) escitalopram oxalate 20 mg tablet 1.5 tab PO DAILY 05/07/22 05/07/22 ibuprofen 200 mg tablet (Ibuprofen 400 mg PO PRN PRN 05/07/22 05/07/22 IB) oxycodone 10 mg tablet 1 tab PO TID 05/07/22 05/07/22 polyethylene glycol 3350 17 gram g PO DAILY AM 05/07/22 oral powder packet (Miralax) pregabalin 100 mg capsule 1 cap PO QID 05/07/22 05/07/22 rosuvastatin 20 mg tablet (Crestor) 20 tab PO DAILY 05/07/22 05/07/22 venlafaxine 150 mg 300 cap PO DAILY AM 05/07/22 05/07/22 capsule,extended release 24 hr diazepam 5 mg tablet (Valium) 5 mg PO BID PRN muscle spasm #10 05/08/22 tabs diazepam 5 mg tablet 5 mg PO TID PRN muscle spasm #10 05/09/22 tabs prednisone 20 mg tablet See Rx Instructions .Route 05/09/22 .COMPLEX #18 tabs Previous Rx's Medication Instructions Recorded diazepam 5 mg tablet (Valium) 5 mg PO BID PRN muscle spasm #10 05/08/22 tabs diazepam 5 mg tablet 5 mg PO TID PRN muscle spasm #10 05/09/22 tabs prednisone 20 mg tablet See Rx Instructions .Route 05/09/22 .COMPLEX #18 tabs Allergies Allergy/AdvReac Type Severity Reaction Status Date / Time morphine Allergy Severe seizures Unverified 05/09/22 14:35 [id number] Antimigraine Allergy Severe seizures Unverified 05/09/22 14:35 Agents venom-honey bee Allergy Severe Anaphylaxsi Unverified 05/09/22 14:35 [bee venom (honey bee)] s zolmitriptan [From Zomig] Allergy Severe seizure Unverified 05/09/22 14:35 General Stated Complaint: GenMedical HARIS: 3 Review of Systems All systems reviewed & are unremarkable except as noted in HPI and below Constitutional Constitutional: Reports as per HPI, Denies chills and Denies fever(s) Eyes Eyes: Denies blurry vision ENT Ears, Nose, Mouth, and Throat: Denies dizziness, Denies sore throat and Denies throat swelling Cardiovascular Cardiovascular: Denies chest pain and Denies dyspnea Respiratory Respiratory: Denies cough and Denies dyspnea Gastrointestinal Gastrointestinal: Denies abdominal pain, Denies diarrhea and Denies vomiting Genitourinary Genitourinary: Denies hematuria and Denies dysuria Musculoskeletal Musculoskeletal: Reports back pain, Denies numbness and Reports tingling (left leg) Integumentary/Breasts Skin/Breast: Denies lesions and Denies rash Neurologic Neurologic: Denies dizziness, Denies localized weakness, Denies numbness, Reports radicular pain and Reports tingling (left leg) Allergic/Immunologic Allergic/Immunologic: Denies throat swelling PFSH All Active Problems (Updated 05/09/22 @ 17:07 by Ne Lynn DO) Bulging of lumbar intervertebral disc (Acute) Acute exacerbation of chronic low back pain (Acute) Back pain with left-sided radiculopathy (Acute) Medical History (Updated 05/09/22 @ 17:07 by Ne Lynn DO) Chronic back pain Former smoker Hx of hyperlipidemia Metastatic primary lung cancer Surgical History (Updated 05/09/22 @ 15:11 by Ne Lynn DO) History of left knee replacement Social History Smoking/Tobacco Use Status: Former Tobacco Use Quit Date: 10/25/21 Smoking risk assessment performed?: Yes Alcohol Intake: former Drug use: Never Substance use type: marijuana Details: does not smoke marijuana uses eatables Do you feel safe at home: Yes Do you feel safe in your relationship?: Yes Additional Social history: pt is a . he has custody of his teenage grandchildren Exam Const General: cooperative and uncomfortable Orientation: alert, awake and oriented x3 HENMT Head: normal to inspection Mouth: oral mucosae normal Eyes General: appearance normal, both eyes and all related structures Neck Neck: normal visual inspection Resp Effort & Inspection: normal respiratory effort and able to speak in complete sentences Auscultation: clear to auscultation bilaterally Cardio Rate: regular rate Rhythm: regular rhythm GI Palpation: soft, not firm, no guarding, not rigid and nontender Auscultation: hypoactive bowel sounds Back/Spine/Pelvis Thoracic/Lumbar Spine: thoracic and lumbar spine normal to inspection, thoracic spinal tenderness and lumbar spinal tenderness Skin General skin exam: no rashes or lesions noted Neuro General: patient alert, patient awake and patient oriented x3 Motor: muscle tone normal throughout and strength 5/5 throughout DTR's: Rt Patellar: 1+, Lt Patellar: 0, Rt Ankle: 1+ and Lt Ankle: 1+ Plantar Reflexes: Equivocal: bilateral (negative babinski b/l ) Extrem Other: B/L DP/PT pulses intact. L anterior knee well healed surgical scar s/p knee replacement. Psych Appearance: grossly normal Affect: normal affect Course Vital Signs Vital signs: Vital Signs Temperature 98.2 F 05/09/22 13:27 Pulse 61 05/09/22 13:27 Respiratory Rate 18 05/09/22 13:27 Blood Pressure 118/66 05/09/22 13:27 Pulse Oximetry 99 05/09/22 13:27 Temperature 98.2 F 05/09/22 13:27 Temperature Source Oral 05/09/22 13:27 Pulse 61 05/09/22 13:27 Respiratory Rate 18 05/09/22 13:27 Blood Pressure 118/66 05/09/22 13:27 Blood Pressure Position Sitting 05/09/22 13:27 Pulse Oximetry 99 05/09/22 13:27 Oxygen Delivery Method Room Air 05/09/22 13:27 Oxygen Flow Rate 0 05/09/22 13:27
[2022-05-09 14:28] VITALS: RESP 18
[2022-05-09] MEDS: HYDROmorphone 2 MG/ML SYR 1 MG IVP (15:51)
[2022-05-09] MEDS: diazePAM 5 MG TAB PO (16:06)
[2022-05-09] MEDS: predniSONE 20 MG TAB 60 MG PO (17:02)
[2022-05-09] MEDS: Heparin 500 UNITS/5 ML SYRINGE (17:17)
[2022-05-09 17:18] VITALS: BP 116/71; PULSE 64; RESP 18; O2SAT 96
== END 2022-05-09 17:30 | disposition home or self-care (01) ==
PROVIDERS: Emergency Provider Physician Assistant; PCP Nurse Practitioner
DX: M51.36 Other intervertebral disc degeneration, lumbar region (principal); C34.90 Malignant neoplasm of unspecified part of unspecified bronchus or lung; C77.9 Secondary and unspecified malignant neoplasm of lymph node, unspecified; C79.70 Secondary malignant neoplasm of unspecified adrenal gland; Z87.891 Personal history of nicotine dependence
CPT/HCPCS: 96374; 99284; J1170; J7512

== ENCOUNTER 2022-05-15 03:10 | Outpatient (RCR) | payer MEDICARE, SELFPAY ==
[2022-05-15] MEDS: Normal Saline Flush 10 ML SYR IVP (08:45)
[2022-05-15 08:49] LABS: Abs Immature Grans 0.05 10^3/uL (0.0-0.06); Absolute Basophil Count 0.02 10^3/uL (0.0-0.2); Absolute Lymphocyte Count 2.43 10^3/uL (1.2-3.4); Absolute Neutrophil Count 5.52 10^3/uL (1.2-6.7); Basophils % 0.2; HCT 40.1 % (40.0-50.0); HGB 13.2 g/dL (13.5-17.5); Immature Grans % 0.6; Lymphocytes % 27.9; MCH 30.6 pg (27.0-33.0); MCHC 32.9 % (32.0-36.0); MCV 93 fL (80-95); MPV 8.8 fL (8.0-11.0); Neutrophils % 63.3; Platelet Count 243 10^3/uL (130-400); RBC 4.32 10^6/uL (4.36-5.78); RDW 14.2 % (11.8-14.1); RDW-SD 48.6 fL; WBC 8.72 10^3/uL (4.4-10.8)
[2022-05-15 09:27] LABS: ALT 22 U/L (16-63); AST 13 U/L (15-37); Albumin 3.4 g/dL (3.4-5.0); Alkaline Phosphatase 94 U/L (46-116); BUN 15 mg/dL (7-18); Bilirubin, Total 0.2 mg/dL (0.2-1.0); CREATININE 1.1 mg/dL (0.70-1.30); Calcium 8.8 mg/dL (8.5-10.1); Chloride 104 mmol/L (98-107); Estimated GFR 73.58 (mL/min/1.73m2); FREE T4 0.88 ng/dL (0.76-1.46); Glucose 134 mg/dL (74-106); Magnesium 1.8 mg/dL (1.8-2.4); Sodium 140 mmol/L (136-145); TSH 6.71 uIU/mL (0.36-3.74); Total Protein 7.2 g/dL (6.4-8.2)
== END 2022-05-26 23:59 | disposition home or self-care (01) ==
LOC: INF 03:10
PROVIDERS: PCP Nurse Practitioner; Visit Provider Internal Medicine Medical Oncology
DX: C78.2 Secondary malignant neoplasm of pleura (principal); Z79.899 Other long term (current) drug therapy; Z45.2 Encounter for adjustment and management of vascular access device
CPT/HCPCS: 36591; 80053; 83735; 84439; 84443; 85025

== ENCOUNTER 2022-06-26 02:36 | Outpatient (RCR) | payer MEDICARE, SELFPAY ==
[2022-06-05] MEDS: Normal Saline Flush 10 ML SYR IVP (09:30)
[2022-06-05 09:58] LABS: Abs Immature Grans 0.02 10^3/uL (0.0-0.06); Absolute Basophil Count 0.01 10^3/uL (0.0-0.2); Absolute Lymphocyte Count 3.04 10^3/uL (1.2-3.4); Absolute Monocyte Count 0.52 10^3/uL (0.1-0.8); Absolute Neutrophil Count 5.11 10^3/uL (1.2-6.7); Basophils % 0.1; HCT 40.6 % (40.0-50.0); HGB 13.8 g/dL (13.5-17.5); Immature Grans % 0.2; Lymphocytes % 34.9; MCH 30.8 pg (27.0-33.0); MCV 91 fL (80-95); MPV 9.1 fL (8.0-11.0); Neutrophils % 58.8; Platelet Count 259 10^3/uL (130-400); RBC 4.48 10^6/uL (4.36-5.78); RDW-SD 46.5 fL
[2022-06-05 10:18] LABS: ALT 19 U/L (16-63); AST 16 U/L (15-37); Albumin 3.8 g/dL (3.4-5.0); Alkaline Phosphatase 92 U/L (46-116); Anion Gap 6.4 mmol/L (3-11); BUN 12 mg/dL (7-18); Bilirubin, Total 0.3 mg/dL (0.2-1.0); CO2 26.6 mmol/L (21.0-32.0); Calcium 8.9 mg/dL (8.5-10.1); Chloride 107 mmol/L (98-107); Estimated GFR 82.49 (mL/min/1.73m2); FREE T4 0.96 ng/dL (0.76-1.46); Glucose 112 mg/dL (74-106); Magnesium 1.9 mg/dL (1.8-2.4); Potassium 4.2 mmol/L (3.5-5.1); Sodium 140 mmol/L (136-145); TSH 1.45 uIU/mL (0.36-3.74); Total Protein 7.6 g/dL (6.4-8.2)
[2022-06-26] MEDS: Normal Saline Flush 10 ML SYR IVP (11:55)
[2022-06-26 12:30] LABS: Abs Immature Grans 0.02 10^3/uL (0.0-0.06); Absolute Basophil Count 0.01 10^3/uL (0.0-0.2); Absolute Lymphocyte Count 2.89 10^3/uL (1.2-3.4); Absolute Monocyte Count 0.46 10^3/uL (0.1-0.8); Absolute Neutrophil Count 5.39 10^3/uL (1.2-6.7); Basophils % 0.1; HCT 41.8 % (40.0-50.0); HGB 14.3 g/dL (13.5-17.5); Immature Grans % 0.2; MCH 30.7 pg (27.0-33.0); MCHC 34.2 % (32.0-36.0); MCV 90 fL (80-95); MPV 9.5 fL (8.0-11.0); Monocytes % 5.2; Neutrophils % 61.5; Platelet Count 268 10^3/uL (130-400); RBC 4.66 10^6/uL (4.36-5.78); RDW 13.2 % (11.8-14.1); RDW-SD 43.4 fL; WBC 8.77 10^3/uL (4.4-10.8)
[2022-06-26 12:56] LABS: ALT 19 U/L (16-63); AST 17 U/L (15-37); Albumin 3.9 g/dL (3.4-5.0); Alkaline Phosphatase 102 U/L (46-116); Anion Gap 6.5 mmol/L (3-11); BUN 14 mg/dL (7-18); Bilirubin, Total 0.3 mg/dL (0.2-1.0); CO2 28.5 mmol/L (21.0-32.0); CREATININE 0.9 mg/dL (0.70-1.30); Calcium 9.1 mg/dL (8.5-10.1); Chloride 105 mmol/L (98-107); Estimated GFR 93.61 (mL/min/1.73m2); FREE T4 0.98 ng/dL (0.76-1.46); Glucose 107 mg/dL (74-106); Potassium 4.3 mmol/L (3.5-5.1); Sodium 140 mmol/L (136-145); Total Protein 7.7 g/dL (6.4-8.2)
== END 2022-06-26 23:59 | disposition home or self-care (01) ==
LOC: INF 02:36
PROVIDERS: PCP Nurse Practitioner; Visit Provider Internal Medicine Medical Oncology
DX: C34.2 Malignant neoplasm of middle lobe, bronchus or lung (principal); Z79.899 Other long term (current) drug therapy; Z45.2 Encounter for adjustment and management of vascular access device
CPT/HCPCS: 36591; 80053; 83735; 84439; 84443; 85025

== ENCOUNTER 2022-07-17 02:38 | Outpatient (RCR) | payer MEDICARE, SELFPAY ==
[2022-07-17] MEDS: Normal Saline Flush 10 ML SYR IVP (14:45)
[2022-07-17 15:03] LABS: Abs Immature Grans 0.03 10^3/uL (0.0-0.06); Absolute Basophil Count 0.01 10^3/uL (0.0-0.2); Absolute Lymphocyte Count 3.34 10^3/uL (1.2-3.4); Absolute Monocyte Count 0.62 10^3/uL (0.1-0.8); Absolute Neutrophil Count 6.34 10^3/uL (1.2-6.7); Basophils % 0.1; HCT 42.6 % (40.0-50.0); HGB 14.4 g/dL (13.5-17.5); Immature Grans % 0.3; Lymphocytes % 32.3; MCH 30.3 pg (27.0-33.0); MCHC 33.8 % (32.0-36.0); MCV 90 fL (80-95); MPV 9.3 fL (8.0-11.0); Neutrophils % 61.3; Platelet Count 270 10^3/uL (130-400); RBC 4.76 10^6/uL (4.36-5.78); RDW 12.9 % (11.8-14.1); RDW-SD 42.2 fL; WBC 10.34 10^3/uL (4.4-10.8)
[2022-07-17 15:39] LABS: ALT 22 U/L (16-63); AST 22 U/L (15-37); Alkaline Phosphatase 87 U/L (46-116); Anion Gap 8.5 mmol/L (3-11); BUN 14 mg/dL (7-18); Bilirubin, Total 0.4 mg/dL (0.2-1.0); CO2 27.5 mmol/L (21.0-32.0); CREATININE 0.9 mg/dL (0.70-1.30); Calcium 9.4 mg/dL (8.5-10.1); Chloride 103 mmol/L (98-107); Estimated GFR 93.61 (mL/min/1.73m2); FREE T4 0.88 ng/dL (0.76-1.46); Glucose 93 mg/dL (74-106); Magnesium 1.9 mg/dL (1.8-2.4); Sodium 139 mmol/L (136-145); TSH 2.65 uIU/mL (0.36-3.74); Total Protein 7.8 g/dL (6.4-8.2)
== END 2022-07-26 23:59 | disposition home or self-care (01) ==
LOC: INF 02:38
PROVIDERS: PCP Nurse Practitioner; Visit Provider Internal Medicine Medical Oncology
DX: C78.2 Secondary malignant neoplasm of pleura (principal); Z45.2 Encounter for adjustment and management of vascular access device
CPT/HCPCS: 36591; 80053; 83735; 84439; 84443; 85025

== ENCOUNTER 2022-08-14 02:41 | Outpatient (RCR) | payer MEDICARE, SELFPAY ==
[2022-08-07] MEDS: Normal Saline Flush 10 ML SYR IVP (12:47)
[2022-08-07 12:54] LABS: Abs Immature Grans 0.02 10^3/uL (0.0-0.06); Absolute Lymphocyte Count 3.59 10^3/uL (1.2-3.4); Absolute Monocyte Count 0.45 10^3/uL (0.1-0.8); HCT 43.8 % (40.0-50.0); HGB 14.8 g/dL (13.5-17.5); Immature Grans % 0.2; Lymphocytes % 39.6; MCH 30.2 pg (27.0-33.0); MCHC 33.8 % (32.0-36.0); MCV 89 fL (80-95); MPV 8.8 fL (8.0-11.0); Neutrophils % 55.2; Platelet Count 291 10^3/uL (130-400); RDW 12.8 % (11.8-14.1); RDW-SD 42.1 fL; WBC 9.06 10^3/uL (4.4-10.8)
[2022-08-07 13:26] LABS: ALT 21 U/L (16-63); AST 19 U/L (15-37); Albumin 3.8 g/dL (3.4-5.0); Alkaline Phosphatase 99 U/L (46-116); Anion Gap 5.8 mmol/L (3-11); BUN 13 mg/dL (7-18); Bilirubin, Total 0.3 mg/dL (0.2-1.0); CO2 31.2 mmol/L (21.0-32.0); Calcium 9.1 mg/dL (8.5-10.1); Chloride 103 mmol/L (98-107); Estimated GFR 82.49 (mL/min/1.73m2); FREE T4 0.87 ng/dL (0.76-1.46); Glucose 137 mg/dL (74-106); Potassium 4.1 mmol/L (3.5-5.1); Sodium 140 mmol/L (136-145); TSH 0.73 uIU/mL (0.36-3.74); Total Protein 7.6 g/dL (6.4-8.2)
[2022-08-14] MEDS: Normal Saline Flush 10 ML SYR IVP (13:09)
[2022-08-14 13:18] LABS: Abs Immature Grans 0.02 10^3/uL (0.0-0.06); Absolute Basophil Count 0.01 10^3/uL (0.0-0.2); Absolute Lymphocyte Count 3.61 10^3/uL (1.2-3.4); Absolute Monocyte Count 0.52 10^3/uL (0.1-0.8); Absolute Neutrophil Count 3.47 10^3/uL (1.2-6.7); Basophils % 0.1; HCT 40.4 % (40.0-50.0); HGB 13.4 g/dL (13.5-17.5); Immature Grans % 0.3; Lymphocytes % 47.3; MCH 29.9 pg (27.0-33.0); MCHC 33.2 % (32.0-36.0); MCV 90 fL (80-95); Monocytes % 6.8; Neutrophils % 45.5; Platelet Count 261 10^3/uL (130-400); RBC 4.48 10^6/uL (4.36-5.78); RDW 12.9 % (11.8-14.1); RDW-SD 42.5 fL; WBC 7.63 10^3/uL (4.4-10.8)
[2022-08-14 13:40] LABS: ALT 20 U/L (16-63); AST 19 U/L (15-37); Albumin 3.8 g/dL (3.4-5.0); Alkaline Phosphatase 92 U/L (46-116); BUN 16 mg/dL (7-18); Bilirubin, Total 0.3 mg/dL (0.2-1.0); CREATININE 1.1 mg/dL (0.70-1.30); Calcium 8.9 mg/dL (8.5-10.1); Chloride 105 mmol/L (98-107); Estimated GFR 73.58 (mL/min/1.73m2); FREE T4 1.02 ng/dL (0.76-1.46); Glucose 91 mg/dL (74-106); Potassium 4.3 mmol/L (3.5-5.1); Sodium 139 mmol/L (136-145); Total Protein 7.4 g/dL (6.4-8.2)
== END 2022-08-26 23:59 | disposition home or self-care (01) ==
LOC: INF 02:41
PROVIDERS: PCP Nurse Practitioner; Visit Provider Internal Medicine Medical Oncology
DX: C34.2 Malignant neoplasm of middle lobe, bronchus or lung (principal); Z79.899 Other long term (current) drug therapy; Z45.2 Encounter for adjustment and management of vascular access device
CPT/HCPCS: 36591; 80053; 83735; 84439; 84443; 85025

== ENCOUNTER 2022-09-25 02:39 | Outpatient (RCR) | payer MEDICARE, SELFPAY ==
[2022-09-04] MEDS: Normal Saline Flush 10 ML SYR IVP (10:20)
[2022-09-04 10:31] LABS: Abs Immature Grans 0.02 10^3/uL (0.0-0.06); Absolute Basophil Count 0.01 10^3/uL (0.0-0.2); Absolute Lymphocyte Count 3.19 10^3/uL (1.2-3.4); Absolute Monocyte Count 0.47 10^3/uL (0.1-0.8); Absolute Neutrophil Count 4.98 10^3/uL (1.2-6.7); Basophils % 0.1; HCT 42.3 % (40.0-50.0); HGB 14.2 g/dL (13.5-17.5); Immature Grans % 0.2; Lymphocytes % 36.8; MCH 30.3 pg (27.0-33.0); MCHC 33.6 % (32.0-36.0); MCV 90 fL (80-95); MPV 9.1 fL (8.0-11.0); Monocytes % 5.4; Neutrophils % 57.5; Platelet Count 243 10^3/uL (130-400); RBC 4.68 10^6/uL (4.36-5.78); RDW 13.1 % (11.8-14.1); RDW-SD 43.2 fL; WBC 8.67 10^3/uL (4.4-10.8)
[2022-09-04 11:03] LABS: ALT 26 U/L (16-63); AST 23 U/L (15-37); Albumin 3.7 g/dL (3.4-5.0); Alkaline Phosphatase 92 U/L (46-116); BUN 14 mg/dL (7-18); Bilirubin, Total 0.2 mg/dL (0.2-1.0); Calcium 8.8 mg/dL (8.5-10.1); Chloride 104 mmol/L (98-107); Estimated GFR 82.49 (mL/min/1.73m2); FREE T4 0.87 ng/dL (0.76-1.46); Glucose 144 mg/dL (74-106); Magnesium 1.9 mg/dL (1.8-2.4); Potassium 3.9 mmol/L (3.5-5.1); Sodium 139 mmol/L (136-145); TSH 1.49 uIU/mL (0.36-3.74); Total Protein 7.2 g/dL (6.4-8.2)
[2022-09-25] MEDS: Normal Saline Flush 10 ML SYR IVP (10:08)
[2022-09-25 10:22] LABS: Abs Immature Grans 0.03 10^3/uL (0.0-0.06); Absolute Basophil Count 0.01 10^3/uL (0.0-0.2); Absolute Lymphocyte Count 2.31 10^3/uL (1.2-3.4); Absolute Monocyte Count 0.52 10^3/uL (0.1-0.8); Absolute Neutrophil Count 6.22 10^3/uL (1.2-6.7); Basophils % 0.1; HGB 14.7 g/dL (13.5-17.5); Immature Grans % 0.3; Lymphocytes % 25.4; MCHC 33.4 % (32.0-36.0); MCV 90 fL (80-95); MPV 9.1 fL (8.0-11.0); Monocytes % 5.7; Neutrophils % 68.5; Platelet Count 255 10^3/uL (130-400); RDW 13.3 % (11.8-14.1); WBC 9.09 10^3/uL (4.4-10.8)
[2022-09-25 10:51] LABS: ALT 21 U/L (16-63); AST 16 U/L (15-37); Albumin 3.8 g/dL (3.4-5.0); Alkaline Phosphatase 87 U/L (46-116); Anion Gap 5.9 mmol/L (3-11); BUN 15 mg/dL (7-18); Bilirubin, Total 0.2 mg/dL (0.2-1.0); CO2 29.1 mmol/L (21.0-32.0); CREATININE 0.8 mg/dL (0.70-1.30); Chloride 106 mmol/L (98-107); FREE T4 0.81 ng/dL (0.76-1.46); Glucose 124 mg/dL (74-106); Magnesium 1.8 mg/dL (1.8-2.4); Potassium 4.2 mmol/L (3.5-5.1); Sodium 141 mmol/L (136-145); TSH 1.63 uIU/mL (0.36-3.74); Total Protein 7.3 g/dL (6.4-8.2)
== END 2022-09-26 23:59 | disposition home or self-care (01) ==
LOC: INF 02:39
PROVIDERS: PCP Nurse Practitioner; Visit Provider Internal Medicine Medical Oncology
DX: C78.2 Secondary malignant neoplasm of pleura (principal); Z79.899 Other long term (current) drug therapy; Z45.2 Encounter for adjustment and management of vascular access device
CPT/HCPCS: 36591; 80053; 83735; 84439; 84443; 85025

== ENCOUNTER 2022-10-18 01:44 | Outpatient (RCR) | payer MEDICARE, SELFPAY ==
[2022-10-18] MEDS: Normal Saline Flush 10 ML SYR IVP (08:31)
[2022-10-18 08:39] LABS: Abs Immature Grans 0.04 10^3/uL (0.0-0.06); Absolute Basophil Count 0.01 10^3/uL (0.0-0.2); Absolute Eosinophil Count 0.22 10^3/uL (0.0-0.7); Absolute Lymphocyte Count 2.89 10^3/uL (1.2-3.4); Absolute Monocyte Count 0.47 10^3/uL (0.1-0.8); Absolute Neutrophil Count 4.93 10^3/uL (1.2-6.7); Basophils % 0.1; Eosinophils % 2.6; HCT 42.4 % (40.0-50.0); HGB 14.3 g/dL (13.5-17.5); Immature Grans % 0.5; Lymphocytes % 33.8; MCH 29.8 pg (27.0-33.0); MCHC 33.7 % (32.0-36.0); MCV 88 fL (80-95); MPV 8.8 fL (8.0-11.0); Monocytes % 5.5; Neutrophils % 57.5; Platelet Count 319 10^3/uL (130-400); RDW 13.2 % (11.8-14.1); WBC 8.56 10^3/uL (4.4-10.8)
[2022-10-18 09:04] LABS: ALT 20 U/L (16-63); AST 15 U/L (15-37); Albumin 3.6 g/dL (3.4-5.0); Alkaline Phosphatase 103 U/L (46-116); BUN 12 mg/dL (7-18); Bilirubin, Total 0.3 mg/dL (0.2-1.0); CREATININE 0.9 mg/dL (0.70-1.30); Calcium 8.8 mg/dL (8.5-10.1); Chloride 107 mmol/L (98-107); Estimated GFR 93.61 (mL/min/1.73m2); FREE T4 0.97 ng/dL (0.76-1.46); Glucose 122 mg/dL (74-106); Potassium 4.2 mmol/L (3.5-5.1); Sodium 142 mmol/L (136-145); TSH 0.73 uIU/mL (0.36-3.74); Total Protein 7.4 g/dL (6.4-8.2)
== END 2022-10-24 23:59 | disposition home or self-care (01) ==
LOC: INF 01:44
PROVIDERS: PCP Nurse Practitioner; Visit Provider Internal Medicine Medical Oncology
DX: C78.2 Secondary malignant neoplasm of pleura (principal); Z79.899 Other long term (current) drug therapy; Z45.2 Encounter for adjustment and management of vascular access device
CPT/HCPCS: 36591; 80053; 83735; 84439; 84443; 85025

== ENCOUNTER 2022-11-08 02:03 | Outpatient (RCR) | payer MEDICARE, SELFPAY ==
[2022-11-08] MEDS: Normal Saline Flush 10 ML SYR IVP (09:36)
[2022-11-08 09:42] LABS: Abs Immature Grans 0.02 10^3/uL (0.0-0.06); Absolute Basophil Count 0.01 10^3/uL (0.0-0.2); Absolute Lymphocyte Count 2.65 10^3/uL (1.2-3.4); Absolute Monocyte Count 0.66 10^3/uL (0.1-0.8); Basophils % 0.1; HCT 44.3 % (40.0-50.0); HGB 14.9 g/dL (13.5-17.5); Immature Grans % 0.2; Lymphocytes % 32.6; MCH 29.9 pg (27.0-33.0); MCHC 33.6 % (32.0-36.0); MCV 89 fL (80-95); Monocytes % 8.1; Platelet Count 270 10^3/uL (130-400); RBC 4.99 10^6/uL (4.36-5.78); RDW 13.5 % (11.8-14.1); RDW-SD 44.3 fL; WBC 8.14 10^3/uL (4.4-10.8)
[2022-11-08 10:10] LABS: ALT 25 U/L (16-63); AST 18 U/L (15-37); Albumin 3.6 g/dL (3.4-5.0); Alkaline Phosphatase 95 U/L (46-116); Anion Gap 6.7 mmol/L (3-11); BUN 14 mg/dL (7-18); Bilirubin, Total 0.3 mg/dL (0.2-1.0); CO2 28.3 mmol/L (21.0-32.0); CREATININE 0.9 mg/dL (0.70-1.30); Calcium 8.8 mg/dL (8.5-10.1); Chloride 105 mmol/L (98-107); Estimated GFR 93.61 (mL/min/1.73m2); FREE T4 0.89 ng/dL (0.76-1.46); Glucose 113 mg/dL (74-106); Magnesium 1.8 mg/dL (1.8-2.4); Potassium 4.2 mmol/L (3.5-5.1); Sodium 140 mmol/L (136-145); TSH 2.08 uIU/mL (0.36-3.74); Total Protein 7.2 g/dL (6.4-8.2)
== END 2022-11-24 23:59 | disposition home or self-care (01) ==
LOC: INF 02:03
PROVIDERS: PCP Nurse Practitioner; Visit Provider Internal Medicine Medical Oncology
DX: C34.2 Malignant neoplasm of middle lobe, bronchus or lung (principal); Z79.899 Other long term (current) drug therapy
CPT/HCPCS: 36591; 80053; 83735; 84439; 84443; 85025

== ENCOUNTER 2022-11-27 10:51 | Emergency (ER) | payer OTHER, SELFPAY ==
[2022-11-27] VITALS (17 sets, daily range): BP systolic 107–128; BP diastolic 64–82; PULSE 58–82; RESP 15–22; TEMP 37.1; O2SAT 99
--- NOTE | 2022-11-27 10:45 | RT.EKG_ITS ---
APPROVED REPORT Exam: Resting ECG Reason for Exam: chest pain Patient Location: E HR:66 bpm ECG Measurements Heart Rate 66 AXIS KS 154 P 60 QRSd 107 QRS 67 QT 395 T 64 QTc 414 Conclusion Sinus rhythm...normal P axis, V-rate 60- 99
--- NOTE | 2022-11-27 11:30 | DI.CT_ITS ---
Exam(s) CT CHEST PE ABD PELVIS W EXAM: CT CHEST PE ABD PELVIS W CLINICAL HISTORY: chest pain intermittent, abd and back pain,lung ca. TECHNIQUE: Imaging Protocol: Axial CT angiography was performed with multi-slice acquisition and m ulti-planar and/or 3D reconstructions. CONTRAST MATERIAL: Intravenous: Omnipaque 350 Contrast volume:100 ml Oral: None COMPARISON: MR MRI - LUMBAR SPINE WO CONTRAST from 03/28/[address] THORAX ABD/PEL CTA from 05/07/[address] LUMBAR SPINE RECONS from 11/27/2022 FINDINGS: CHEST: Distal tip of the right sided central line is in the lower right atrium. PULMONARY ARTERIES: There are no intra-arterial filling defects to suggest the presence of acute pulm onary emboli. LUNGS: There is no evidence of pulmonary infarction.Mild increased markings in the lung bases but no confluent infiltrates and there are no pleural effusions. No obvious significant findings in the tra ivanna and mainstem bronchi. There is no bronchiectasis. MEDIASTINUM: There is no hilar nor mediastinal adenopathy. Visualized thyroid unremarkable. CARDIAC: Heart size is normal. There is no pericardial effusion. There is no significant shift of t he interventricular septum.Caliber of the thoracic aorta is within normal limits. No evidence of aor tic dissection. OSSEOUS: No significant osseous lesions.. ABDOMEN: There is no ascites. LIVER: No significant hepatic lesions. There is mild dilatation of intrahepatic ducts evident in bot h lobes in this patient has had prior cholecystectomy. CBD diameter is upper normal. GALLBLADDER/BILIARY: Surgically absent. CBD is not dilated. PANCREAS: No evidence of pancreatic mass nor dilatation of the pancreatic duct. SPLEEN: Spleen is not enlarged. There are no intrasplenic lesions. Splenic and portal veins are jha nt. ADRENALS: Symmetrical appearing hypodense masses again noted in both adrenal glands and these appear unchanged from the previous study 05/07/2022. KIDNEYS:No cysts evident. No calculi nor hydronephrosis. No solid renal masses. ABDOMINAL AORTA: Calcified but not enlarged. Common iliac arteries are calcified. The right common iliac artery is slightly dilated with maximum diameter 1.4 cm, unchanged. No aneurysms of the back maker al iliac arteries. Atherosclerotic involvement of the medial wall of the left common femoral artery with noncalcified plaque at this level. No femoral artery aneurysms evident. Proximal aspects of winifred th SFA arteries are patent. LYMPH NODES: There is no retroperitoneal or para-aortic adenopathy. ABDOMINAL WALL/GI: No evidence of significant anterior abdominal wall hernia. Abundant fecal materia l noted throughout the colon. No bowel obstruction evident. PELVIS: LYMPH NODES: There is no intrapelvic nor inguinal adenopathy. GI: No evidence of appendicitis.No evidence of sigmoid diverticulitis. URINARY BLADDER: No calculi nor masses evident REPRODUCTIVE: Enlarged prostate gland. Measures 5 cm wide. Indents the bladder base. No obturator adenopathy. OSSEOUS: No significant osseous lesions. Bilateral pars defects at L5 level with mild anterolisthesis L5 upon S1 and disc space narrowing at t his level. IMPRESSION: 1. No evidence of acute pulmonary emboli nor pulmonary infarction. 2. There are no pleural effusions. 3. Gallbladder surgically absent. Mild dilatation of intrahepatic ducts is probably secondary to pos t cholecystectomy status. 4. Unchanged appearance of the to hypodense similar appearing lesions in both adrenal glands, these b eing unchanged from CT scan of 05/07/2022. 5. Mild dilated diameter of the right common iliac artery measuring 1.4 cm. Noncalcified atheromatou s sclerotic plaque on the medial aspect of the left common femoral artery, but with no evidence of an eurysm at this level. 6. Moderately enlarged prostate gland. 7. Mild anterolisthesis L5 upon S1 due to bilateral pars defects at L5. RADIATION DOSE DELIVERED: Total DLP DATA REPOSITORY: All CT scans at this facility are submitted to the National Radiology Data Registry (NRDR) Dose Index Registry (DIR) with the [employer] ([employer]). RADIATION OPTIMIZATION: All CT scans at this facility use at least one of these dose optimization te chniques: automated exposure control; mA and/or kV adjustment per patient size (includes targeted exa ms where dose is matched to clinical indication); or iterative reconstruction.
--- NOTE | 2022-11-27 11:42 | DI.CT_ITS ---
Exam(s) CT LUMBAR SPINE RECONS EXAM: CT LUMBAR SPINE RECONS CLINICAL HISTORY: lung ca, low back pain. TECHNIQUE: Imaging Protocol: Axial computed tomography images with coronal and sagittal reformatted images were created and reviewed COMPARISON: CT CT THORAX ABD/PEL CTA from 05/07/2022 FINDINGS: Bones: No evidence of acute compression fracture. No obvious pathologic fractures.. There is mild anterolisthesis L5 upon S1 due to bilateral pars defects at L5 level. There is approximately 7 johnny meter anterior slippage of L5 upon S1 at this level. There is moderate disc space narrowing at L5-S1 level also evident. Other disc spaces exhibit normal height. There is a benign-appearing peripherally sclerotic lucency in the mid-of the L1 vertebral body. Deal t for for aggressive neoplasm as it exhibits a thin sclerotic border. This measures 10 x 10 mm. And is unchanged from CT scan of 05/07/2022. No new osseous lesions evident in the lumbar vertebral bod ies. INDIVIDUAL LEVELS: T12-L1:No disc herniation nor canal stenosis. Facet joints unremarkable. No foraminal stenosis. L1-2: No disc herniation nor canal stenosis. Facet joints unremarkable. No foraminal stenosis. L2-3: No disc herniation nor canal stenosis. Facet joints unremarkable. No Foraminal stenosis L3-4: No disc herniation nor canal stenosis. Facet joints unremarkable. No foraminal stenosis. L4-5: No disc herniation nor canal stenosis. L5-S1: No disc herniation or canal stenosis. The visualized sacroiliac joints and sacrum appear unremarkable. PARASPINAL SOFT TISSUES: Visualized paraspinal tissues appear unremarkable. IMPRESSION: 1. Findings as above but without significant change from CT scan of 05/07/2022. 2. No evidence of acute fracture in the lumbar vertebrae. Unchanged L5 upon S1 listhesis due to L5 p ars defects. Stable benign-appearing nonexpansile bone lesion in L1 vertebral body. 3. RADIATION DOSE DELIVERED: 1250.88 mGy.cm Total DLP DATA REPOSITORY: All CT scans at this facility are submitted to the National Radiology Data Registry (NRDR) Dose Index Registry (DIR) with the [employer] ([employer]). RADIATION OPTIMIZATION: All CT scans at this facility use at least one of these dose optimization te chniques: automated exposure control; mA and/or kV adjustment per patient size (includes targeted exa ms where dose is matched to clinical indication); or iterative reconstruction.
[2022-11-27] MEDS: oxyCODONE 10 MG TAB PO (11:47)
[2022-11-27] MEDS: Prochlorperazine 10 MG/2 ML VIAL IVP (11:48)
[2022-11-27 12:15] LABS: Troponin I < 50 ng/L (<or=60)
[2022-11-27] MEDS: Normal Saline - Diluent 50 ML VIAL IJ (12:49)
[2022-11-27] MEDS: Omnipaque 350 MG/ML 500 ML BTL-Imaging package IJ (12:50)
[2022-11-27] MEDS: Normal Saline Flush 10 ML SYR IVP (12:51)
[2022-11-27 13:24] LABS: Bilirubin Negative (Negative); Blood Negative (Negative); Clarity Clear (Clear); Glucose Negative (Negative); Ketones Negative (Negative); Leukocyte Esterase Negative (Negative); Nitrite Negative (Negative); Specific Gravity <= 1.005 (1.005-1.025); Urobilinogen 0.2 mg/dL (Up to 0.2)
--- NOTE | 2022-11-27 13:52 | W.ED.GENAD ---
Discharge Plan Disposition Patient Disposition: Home Condition: Stable Discharge Details Clinical Impression: Chronic low back pain, Anterolisthesis of lumbar spine, Lesion of adrenal gland, Enlarged prostate Primary Care Provider: Bety Snowden ED Provider: Ryan Chris Home Meds and New Rx's Prescriptions: Continued lamotrigine [Lamictal] 200 MG tablet 200 mg PO DAILY AM verapamil 360 MG capsule,ext rel. pellets 24 hr 360 mg PO DAILY epinephrine 0.3 MG/SYR auto-injector 0.3 ml IM PRN PRN nitroglycerin [Nitrostat] 0.3 MG tablet, sublingual 0.4 mg PO PRN PRN oxycodone 10 mg tablet 1 tab PO TID Patient Comments: take 1 tablet by mouth three times a day if needed for pain rosuvastatin [Crestor] 20 mg tablet 20 tab PO DAILY Patient Comments: take 1 tablet by mouth once daily pregabalin 100 mg capsule 1 cap PO QID Patient Comments: take 1 capsule by mouth three times a day venlafaxine 150 mg capsule,extended release 24hr 300 cap PO DAILY AM Patient Comments: take 2 capsules by mouth daily escitalopram oxalate 20 mg tablet 1.5 tab PO DAILY Patient Comments: TAKE 1 AND 1/2 TABLETS BY MOUTH DAILY ibuprofen [Ibuprofen IB] 200 mg Tablet 400 mg PO PRN PRN prochlorperazine maleate 10 mg tablet 10 mg PO QID Discontinued lorazepam 0.5 MG tablet 1 mg PO 0.5 AM 1.0 PM Patient Comments: not taking anymore diazepam [Valium] 5 mg tablet 5 mg PO BID PRN (Reason: muscle spasm) Qty: 10 0RF Patient Comments: not taking anymore prednisone 20 mg tablet See Rx Instructions .ROUTE .COMPLEX Qty: 18 0RF Patient Comments: not taking anymore Rx Instructions: Take 3 tabs daily for 3 days, then 2 tabs daily for 3 days, then 1 tab daily for 3 days. diazepam 5 mg tablet 5 mg PO TID PRN (Reason: muscle spasm) Qty: 10 0RF Patient Comments: not taking anymore No Action metoprolol tartrate 25 MG tablet 25 mg PO 1XD Discharge Instructions Instructions: Chronic Back Pain (DC) Additional Instructions: Please take your medications as prescribed. Please follow-up with your oncologist. Please follow-up with your back specialist to discuss treatment options for chronic back pain and anterolisthesis noted on CT. Please contact your primary care physician to arrange follow-up. Return to the ER immediately for any worsening or new concerning symptoms. Medical Decision Making 1355 --66-year-old male with history of chronic low back pain, lung cancer currently on chemotherapy, here with exacerbation of low back pain. Patient has no focal neurologic deficits or bowel or bladder dysfunction. Patient also noting intermittent difficulty breathing over the past few days that is not currently present. Patient is currently saturating well in no respiratory distress. Patient also notes some intermittent abdominal discomfort. Severe acute pulmonary embolism versus metastatic spread of lung cancer versus increased tumor burden versus other. History is not consistent with ACS. EKG was reviewed and interpreted by me: Please see report, sinus rhythm 66 bpm, no STEMI, nondiagnostic. Troponin was checked and negative. CT chest, abd, pelv: 1. No evidence of acute pulmonary emboli nor pulmonary infarction. 2. There are no pleural effusions. 3. Gallbladder surgically absent.?Mild dilatation of intrahepatic ducts is probably secondary to post cholecystectomy status. 4. Unchanged appearance of the to hypodense similar appearing lesions in both adrenal glands, these being unchanged from CT scan of 05/07/2022. 5. Mild dilated diameter of the right common iliac artery measuring 1.4 cm.? Noncalcified atheromatous sclerotic plaque on the medial aspect of the left common femoral artery, but with no evidence of aneurysm at this level. 6.? Moderately enlarged prostate gland. 7.? Mild anterolisthesis L5 upon S1 due to bilateral pars defects at L5. CT lspine interpreted by radiology: 1. Findings as above but without significant change from CT scan of 05/07/2022. 2. No evidence of acute fracture in the lumbar vertebrae.? Unchanged L5 upon S1 listhesis due to L5 pars defects.? Stable benign-appearing nonexpansile bone lesion in L1 vertebral body. Patient was given Compazine for nausea and oxycodone 10 mg which she is prescribed for chronic low back pain. Patient reassessed and feeling much better. Plan for discharge with outpatient follow-up with his oncology team and primary care physician. Usual customary discharge instructions reviewed the patient. Patient is noted to be ambulating without difficulty out of the emergency department and was appreciative of care. HPI General Mode of arrival: ambulatory. Date/Time Provider Initiated Documentation: 11/27/22 11:09. Limitations to Documentation: no limitations. Information obtained by: patient. HPI Narrative: 66-year-old male with multimedical problems including history of chronic low back pain, metastatic primary lung cancer currently receiving chemotherapy, here with chief complaint of back pain. Patient notes he has had chronic back pain times months to years. He notes over the past 3 days he has had worse back pain than usual and also diffuse body aches. He denies associated bowel or bladder dysfunction. No numbness or weakness. He states he has had some abdominal discomfort. He also notes some intermittent chest discomfort further characterized as difficulty breathing that comes and goes. He has no chest pain at this time. Patient states he was seen by his oncology team today and had outpatient blood work performed and was sent to the ED for evaluation given his degree of pain. Related Data Home Medications Medication Instructions Recorded Confirmed lamotrigine 200 mg tablet 200 mg PO DAILY AM 11/26/12 11/27/22 (Lamictal) epinephrine 0.3 mg/0.3 mL 0.3 ml IM PRN PRN 10/06/13 11/27/22 injection, auto-injector verapamil 360 mg 24 hr 360 mg PO DAILY 10/06/13 11/27/22 capsule,extended release metoprolol tartrate 25 mg tablet 25 mg PO 1XD 02/01/16 11/27/22 nitroglycerin 0.3 mg sublingual 0.4 mg PO PRN PRN 02/01/16 11/27/22 tablet (Nitrostat) escitalopram oxalate 20 mg tablet 1.5 tab PO DAILY 05/07/22 11/27/22 ibuprofen 200 mg tablet (Ibuprofen 400 mg PO PRN PRN 05/07/22 11/27/22 IB) oxycodone 10 mg tablet 1 tab PO TID 05/07/22 11/27/22 pregabalin 100 mg capsule 1 cap PO QID 05/07/22 11/27/22 rosuvastatin 20 mg tablet (Crestor) 20 tab PO DAILY 05/07/22 11/27/22 venlafaxine 150 mg 300 cap PO DAILY AM 05/07/22 11/27/22 capsule,extended release 24 hr prochlorperazine maleate 10 mg 10 mg PO QID 11/27/22 11/27/22 tablet Allergies Allergy/AdvReac Type Severity Reaction Status Date / Time morphine Allergy Severe seizures Unverified 05/09/22 14:35 [id number] Antimigraine Allergy Severe seizures Unverified 05/09/22 14:35 Agents venom-honey bee Allergy Severe Anaphylaxsi Unverified 05/09/22 14:35 [bee venom (honey bee)] s zolmitriptan [From Zomig] Allergy Severe seizure Unverified 05/09/22 14:35 General Stated Complaint: Chest Pain HARIS: 3 Review of Systems All systems reviewed & are unremarkable except as noted in HPI and below Constitutional Constitutional: Denies fever(s) Cardiovascular Cardiovascular: Denies chest pain Respiratory Respiratory: Reports as per HPI Gastrointestinal Gastrointestinal: Reports as per HPI and Denies vomiting Musculoskeletal Musculoskeletal: Reports as per HPI PFSH All Active Problems Chronic low back pain (Chronic) Anterolisthesis of lumbar spine (Acute) Lesion of adrenal gland (Acute) Enlarged prostate (Acute) Medical History Chronic back pain Former smoker Hx of hyperlipidemia Metastatic primary lung cancer Surgical History History of left knee replacement Social History Smoking/Tobacco Use Status: Former Tobacco Use Quit Date: 10/25/21 Smoking risk assessment performed?: Yes Alcohol Intake: former Drug use: Never Substance use type: marijuana Details: does not smoke marijuana uses eatables Do you feel safe at home: Yes Do you feel safe in your relationship?: Yes Additional Social history: pt is a . he has custody of his teenage grandchildren Exam Const General: cooperative and no acute distress HENMT Mouth: moist mucous membranes Eyes Conjunctivae: normal conjunctivae Sclera: normal sclerae Neck Neck: trachea midline and supple Resp Auscultation: clear to auscultation bilaterally, no rales, no rhonchi and no wheezes Cardio Rate: regular rate and not tachycardic Rhythm: regular rhythm GI Palpation: soft, not firm, no guarding, no masses, not rigid and nontender Back/Spine/Pelvis Back: No mass, No erythema, No warmth and No ecchymosis Cervical Spine: cervical ROM normal and No cervical spinal tenderness Thoracic/Lumbar Spine: No thoracic spinal tenderness and lumbar spinal tenderness (bilateral) Skin General skin exam: no rashes or lesions noted Neuro General: patient alert, patient awake, patient oriented x3 and tone normal Cognition: normal cognition Motor: strength 5/5 throughout (b/l LEs) Sensory Exam: no sensory deficits noted and other (no saddle anesth) Extrem General: no edema Psych Appearance: grossly normal Mental Status: mental status grossly normal Course Vital Signs Vital signs: Vital Signs Temperature 37.1 C 11/27/22 10:56 Pulse 82 11/27/22 10:56 Respiratory Rate 18 11/27/22 10:56 Blood Pressure 111/82 11/27/22 10:56 Pulse Oximetry 99 11/27/22 10:56 Temperature 37.1 C 11/27/22 10:56 Temperature Source Oral 11/27/22 10:56 Pulse 60 11/27/22 13:18 Pulse 61 11/27/22 13:17 Respiratory Rate 18 11/27/22 13:17 Respiratory Effort Normal 11/27/22 11:09 Respiratory Depth Normal 11/27/22 11:09 Respiratory Pattern Normal 11/27/22 11:09 Blood Pressure 117/71 11/27/22 13:18 Blood Pressure Mean 81 11/27/22 13:18 Pulse Oximetry 99 11/27/22 10:56 Oxygen Delivery Method Room Air 11/27/22 10:56 Oxygen Flow Rate 0 11/27/22 10:56 Pain Level 6 11/27/22 13:00 Lab/Test Results Lab/Test Results: Laboratory Tests Range/Units 11/27/22 11/27/22 11:55 13:20 Troponin I (<or=60) ng/L < 50 Urine Color (Yellow) Yellow Urine Clarity (Clear) Clear Urine pH (5-8) 6.0 Ur Specific [place] (1.005-1.025) <= 1.005 Urine Protein (Negative) mg/dL Negative Urine Ketones (Negative) mg/dL Negative Urine Blood (Negative) Negative Urine Nitrite (Negative) Negative Urine Bilirubin (Negative) Negative Urine Urobilinogen (Up to 0.2) mg/dL 0.2 Ur Leukocyte Esterase (Negative) Negative Urine Glucose (Negative) mg/dL Negative
[2022-11-27] MEDS: Heparin 500 UNITS/5 ML SYRINGE (14:21)
== END 2022-11-27 14:58 | disposition home or self-care (01) ==
PROVIDERS: Emergency Provider Student in an Organized Health Care Education/Training Program; PCP Nurse Practitioner
DX: M43.16 Spondylolisthesis, lumbar region (principal); E27.9 Disorder of adrenal gland, unspecified; G89.29 Other chronic pain; N40.0 Benign prostatic hyperplasia without lower urinary tract symptoms; R10.9 Unspecified abdominal pain; R11.0 Nausea
CPT/HCPCS: 36415; 71275; 74177; 93005; 96374; 99285; 81003; 84484; 93010; 99284; J0780

== ENCOUNTER 2022-12-14 03:20 | Outpatient (RCR) | payer MEDICARE, SELFPAY ==
[2022-11-27] MEDS: Normal Saline Flush 10 ML SYR IVP (09:22)
[2022-11-27 09:35] LABS: Abs Immature Grans 0.03 10^3/uL (0.0-0.06); Absolute Basophil Count 0.01 10^3/uL (0.0-0.2); Absolute Lymphocyte Count 2.16 10^3/uL (1.2-3.4); Absolute Monocyte Count 0.52 10^3/uL (0.1-0.8); Absolute Neutrophil Count 7.33 10^3/uL (1.2-6.7); Basophils % 0.1; HCT 42.3 % (40.0-50.0); HGB 14.4 g/dL (13.5-17.5); Immature Grans % 0.3; Lymphocytes % 21.5; MCH 30.4 pg (27.0-33.0); MCV 89 fL (80-95); Monocytes % 5.2; Neutrophils % 72.9; Platelet Count 242 10^3/uL (130-400); RBC 4.74 10^6/uL (4.36-5.78); RDW 13.3 % (11.8-14.1); RDW-SD 43.7 fL; WBC 10.05 10^3/uL (4.4-10.8)
[2022-11-27 10:00] LABS: ALT 25 U/L (16-63); AST 16 U/L (15-37); Albumin 3.7 g/dL (3.4-5.0); Alkaline Phosphatase 94 U/L (46-116); Anion Gap 7.1 mmol/L (3-11); BUN 15 mg/dL (7-18); Bilirubin, Total 0.2 mg/dL (0.2-1.0); CO2 26.9 mmol/L (21.0-32.0); CREATININE 0.9 mg/dL (0.70-1.30); Calcium 8.7 mg/dL (8.5-10.1); Chloride 107 mmol/L (98-107); Estimated GFR 93.61 (mL/min/1.73m2); FREE T4 0.95 ng/dL (0.76-1.46); Glucose 122 mg/dL (74-106); Magnesium 1.9 mg/dL (1.8-2.4); Sodium 141 mmol/L (136-145); TSH 1.16 uIU/mL (0.36-3.74); Total Protein 7.2 g/dL (6.4-8.2)
[2022-12-14] MEDS: Normal Saline Flush 10 ML SYR IVP (07:37)
[2022-12-14 07:45] LABS: Abs Immature Grans 0.02 10^3/uL (0.0-0.06); Absolute Basophil Count 0.01 10^3/uL (0.0-0.2); Absolute Lymphocyte Count 2.66 10^3/uL (1.2-3.4); Absolute Monocyte Count 0.42 10^3/uL (0.1-0.8); Absolute Neutrophil Count 4.44 10^3/uL (1.2-6.7); Basophils % 0.1; HCT 43.6 % (40.0-50.0); HGB 14.8 g/dL (13.5-17.5); Immature Grans % 0.3; Lymphocytes % 35.2; MCH 30.2 pg (27.0-33.0); MCHC 33.9 % (32.0-36.0); MCV 89 fL (80-95); MPV 8.9 fL (8.0-11.0); Monocytes % 5.6; Neutrophils % 58.8; Platelet Count 266 10^3/uL (130-400); RDW 13.3 % (11.8-14.1); RDW-SD 43.6 fL; WBC 7.55 10^3/uL (4.4-10.8)
[2022-12-14 08:06] LABS: ALT 27 U/L (16-63); AST 19 U/L (15-37); Albumin 3.7 g/dL (3.4-5.0); Alkaline Phosphatase 97 U/L (46-116); Anion Gap 7.1 mmol/L (3-11); BUN 14 mg/dL (7-18); Bilirubin, Total 0.2 mg/dL (0.2-1.0); CO2 27.9 mmol/L (21.0-32.0); Calcium 8.8 mg/dL (8.5-10.1); Chloride 105 mmol/L (98-107); Estimated GFR 82.49 (mL/min/1.73m2); FREE T4 0.94 ng/dL (0.76-1.46); Glucose 115 mg/dL (74-106); Magnesium 1.8 mg/dL (1.8-2.4); Potassium 4.4 mmol/L (3.5-5.1); Sodium 140 mmol/L (136-145); TSH 1.34 uIU/mL (0.36-3.74); Total Protein 7.3 g/dL (6.4-8.2)
== END 2022-12-24 23:59 | disposition home or self-care (01) ==
LOC: INF 03:20
PROVIDERS: PCP Nurse Practitioner; Visit Provider Internal Medicine Medical Oncology
DX: Z79.899 Other long term (current) drug therapy (principal); C34.2 Malignant neoplasm of middle lobe, bronchus or lung; Z45.2 Encounter for adjustment and management of vascular access device
CPT/HCPCS: 36591; 80053; 83735; 84439; 84443; 85025

== ENCOUNTER 2023-01-08 01:59 | Outpatient (RCR) | payer MEDICARE, SELFPAY ==
[2023-01-08] MEDS: Normal Saline Flush 10 ML SYR IVP (07:15)
[2023-01-08 07:44] LABS: Abs Immature Grans 0.03 10^3/uL (0.0-0.06); Absolute Lymphocyte Count 2.22 10^3/uL (1.2-3.4); Absolute Monocyte Count 0.37 10^3/uL (0.1-0.8); Absolute Neutrophil Count 3.61 10^3/uL (1.2-6.7); HCT 43.7 % (40.0-50.0); HGB 14.6 g/dL (13.5-17.5); Immature Grans % 0.5; Lymphocytes % 35.6; MCH 29.8 pg (27.0-33.0); MCHC 33.4 % (32.0-36.0); MCV 89 fL (80-95); Monocytes % 5.9; Platelet Count 229 10^3/uL (130-400); RDW 13.2 % (11.8-14.1); RDW-SD 43.3 fL; WBC 6.23 10^3/uL (4.4-10.8)
[2023-01-08 08:19] LABS: ALT 27 U/L (16-63); AST 21 U/L (15-37); Albumin 3.7 g/dL (3.4-5.0); Alkaline Phosphatase 97 U/L (46-116); Anion Gap 7.6 mmol/L (3-11); BUN 11 mg/dL (7-18); Bilirubin, Total 0.4 mg/dL (0.2-1.0); CO2 28.4 mmol/L (21.0-32.0); Calcium 9.1 mg/dL (8.5-10.1); Chloride 105 mmol/L (98-107); Estimated GFR 81.98 (mL/min/1.73m2); FREE T4 0.96 ng/dL (0.76-1.46); Glucose 138 mg/dL (74-106); Magnesium 1.9 mg/dL (1.8-2.4); Potassium 3.8 mmol/L (3.5-5.1); Sodium 141 mmol/L (136-145); TSH 2.02 uIU/mL (0.36-3.74); Total Protein 7.5 g/dL (6.4-8.2)
== END 2023-01-24 23:59 | disposition home or self-care (01) ==
LOC: INF 01:59
PROVIDERS: PCP Nurse Practitioner; Visit Provider Internal Medicine Medical Oncology
DX: Z79.899 Other long term (current) drug therapy (principal); C34.31 Malignant neoplasm of lower lobe, right bronchus or lung; Z45.2 Encounter for adjustment and management of vascular access device
CPT/HCPCS: 36591; 80053; 83735; 84439; 84443; 85025

== ENCOUNTER 2023-02-19 02:48 | Outpatient (RCR) | payer MEDICARE, SELFPAY ==
[2023-01-29] MEDS: Normal Saline Flush 10 ML SYR IVP (13:01)
[2023-01-29 13:16] LABS: Abs Immature Grans 0.03 10^3/uL (0.0-0.06); Absolute Basophil Count 0.01 10^3/uL (0.0-0.2); Basophils % 0.1; HCT 43.9 % (40.0-50.0); HGB 14.4 g/dL (13.5-17.5); Immature Grans % 0.3; Lymphocytes % 37.2; MCH 29.8 pg (27.0-33.0); MCHC 32.8 % (32.0-36.0); MCV 91 fL (80-95); Monocytes % 6.6; Neutrophils % 55.8; Platelet Count 260 10^3/uL (130-400); RBC 4.83 10^6/uL (4.36-5.78); RDW 13.2 % (11.8-14.1); RDW-SD 43.9 fL; WBC 9.14 10^3/uL (4.4-10.8)
[2023-01-29 13:48] LABS: ALT 28 U/L (16-63); AST 18 U/L (15-37); Albumin 3.7 g/dL (3.4-5.0); Alkaline Phosphatase 88 U/L (46-116); Anion Gap 5.7 mmol/L (3-11); BUN 16 mg/dL (7-18); Bilirubin, Total 0.3 mg/dL (0.2-1.0); CO2 26.3 mmol/L (21.0-32.0); Calcium 8.5 mg/dL (8.5-10.1); Chloride 106 mmol/L (98-107); Estimated GFR 81.98 (mL/min/1.73m2); Glucose 99 mg/dL (74-106); Potassium 4.3 mmol/L (3.5-5.1); Sodium 138 mmol/L (136-145); TSH 1.07 uIU/mL (0.36-3.74); Total Protein 7.3 g/dL (6.4-8.2)
[2023-02-19] MEDS: Normal Saline Flush 10 ML SYR IVP (09:36)
[2023-02-19 09:56] LABS: Abs Immature Grans 0.16 10^3/uL (0.0-0.06); Absolute Basophil Count 0.03 10^3/uL (0.0-0.2); Absolute Lymphocyte Count 3.83 10^3/uL (1.2-3.4); Absolute Monocyte Count 0.95 10^3/uL (0.1-0.8); Absolute Neutrophil Count 11.38 10^3/uL (1.2-6.7); Basophils % 0.2; HCT 43.3 % (40.0-50.0); HGB 14.1 g/dL (13.5-17.5); Lymphocytes % 23.4; MCH 29.1 pg (27.0-33.0); MCHC 32.6 % (32.0-36.0); MCV 89 fL (80-95); MPV 8.5 fL (8.0-11.0); Monocytes % 5.8; Neutrophils % 69.6; Platelet Count 402 10^3/uL (130-400); RBC 4.85 10^6/uL (4.36-5.78); RDW 13.5 % (11.8-14.1); RDW-SD 44.1 fL; WBC 16.35 10^3/uL (4.4-10.8)
[2023-02-19 10:28] LABS: ALT 48 U/L (16-63); AST 20 U/L (15-37); Alkaline Phosphatase 75 U/L (46-116); Anion Gap 9.1 mmol/L (3-11); BUN 15 mg/dL (7-18); Bilirubin, Total 0.3 mg/dL (0.2-1.0); CO2 26.9 mmol/L (21.0-32.0); CREATININE 0.9 mg/dL (0.70-1.30); Calcium 8.8 mg/dL (8.5-10.1); Chloride 104 mmol/L (98-107); Estimated GFR 93.03 (mL/min/1.73m2); FREE T4 1.04 ng/dL (0.76-1.46); Glucose 108 mg/dL (74-106); Magnesium 1.9 mg/dL (1.8-2.4); Potassium 4.3 mmol/L (3.5-5.1); Sodium 140 mmol/L (136-145); TSH 1.43 uIU/mL (0.36-3.74); Total Protein 7.4 g/dL (6.4-8.2)
== END 2023-02-23 23:59 | disposition home or self-care (01) ==
LOC: INF 02:48
PROVIDERS: PCP Nurse Practitioner; Visit Provider Internal Medicine Medical Oncology
DX: Z79.899 Other long term (current) drug therapy (principal); Z45.2 Encounter for adjustment and management of vascular access device; C34.31 Malignant neoplasm of lower lobe, right bronchus or lung
CPT/HCPCS: 36591; 80053; 83735; 84439; 84443; 85025

== ENCOUNTER 2023-03-19 04:00 | Outpatient (RCR) | payer MEDICARE, SELFPAY ==
[2023-03-19 10:29] LABS: Abs Immature Grans 0.02 10^3/uL (0.0-0.06); Absolute Lymphocyte Count 2.15 10^3/uL (1.2-3.4); Absolute Neutrophil Count 3.87 10^3/uL (1.2-6.7); HCT 42.3 % (40.0-50.0); HGB 14.1 g/dL (13.5-17.5); Immature Grans % 0.3; Lymphocytes % 33.4; MCH 29.8 pg (27.0-33.0); MCHC 33.3 % (32.0-36.0); MCV 89 fL (80-95); Monocytes % 6.2; Neutrophils % 60.1; Platelet Count 286 10^3/uL (130-400); RBC 4.73 10^6/uL (4.36-5.78); RDW 14.3 % (11.8-14.1); RDW-SD 46.5 fL; WBC 6.44 10^3/uL (4.4-10.8)
[2023-03-19 10:57] LABS: ALT 25 U/L (16-63); AST 18 U/L (15-37); Albumin 3.4 g/dL (3.4-5.0); Alkaline Phosphatase 103 U/L (46-116); Anion Gap 9.5 mmol/L (3-11); BUN 16 mg/dL (7-18); Bilirubin, Total 0.2 mg/dL (0.2-1.0); CO2 27.5 mmol/L (21.0-32.0); CREATININE 1.1 mg/dL (0.70-1.30); Calcium 8.9 mg/dL (8.5-10.1); Chloride 107 mmol/L (98-107); Estimated GFR 73.12 (mL/min/1.73m2); FREE T4 0.77 ng/dL (0.76-1.46); Glucose 140 mg/dL (74-106); Magnesium 1.8 mg/dL (1.8-2.4); Potassium 4.2 mmol/L (3.5-5.1); Sodium 144 mmol/L (136-145); TSH 1.19 uIU/mL (0.36-3.74)
[2023-03-19] MEDS: Normal Saline Flush 10 ML SYR IVP (11:23)
== END 2023-03-26 23:59 | disposition home or self-care (01) ==
LOC: INF 04:00
PROVIDERS: PCP Nurse Practitioner; Visit Provider Internal Medicine Medical Oncology
DX: Z79.899 Other long term (current) drug therapy (principal); Z45.2 Encounter for adjustment and management of vascular access device; C34.31 Malignant neoplasm of lower lobe, right bronchus or lung
CPT/HCPCS: 36591; 80053; 83735; 84439; 84443; 85025

== ENCOUNTER 2023-04-09 03:39 | Outpatient (RCR) | payer MEDICARE, SELFPAY ==
[2023-04-09 09:51] LABS: Abs Immature Grans 0.02 10^3/uL (0.0-0.06); Absolute Basophil Count 0.01 10^3/uL (0.0-0.2); Absolute Lymphocyte Count 2.32 10^3/uL (1.2-3.4); Absolute Monocyte Count 0.56 10^3/uL (0.1-0.8); Absolute Neutrophil Count 5.33 10^3/uL (1.2-6.7); Basophils % 0.1; HGB 14.8 g/dL (13.5-17.5); Immature Grans % 0.2; Lymphocytes % 28.2; MCH 29.7 pg (27.0-33.0); MCHC 33.6 % (32.0-36.0); MCV 88 fL (80-95); MPV 8.8 fL (8.0-11.0); Monocytes % 6.8; Neutrophils % 64.7; Platelet Count 273 10^3/uL (130-400); RBC 4.99 10^6/uL (4.36-5.78); RDW 14.5 % (11.8-14.1); RDW-SD 46.4 fL; WBC 8.24 10^3/uL (4.4-10.8)
[2023-04-09] MEDS: Normal Saline Flush 10 ML SYR IVP (09:57)
[2023-04-09 10:14] LABS: ALT 27 U/L (16-63); AST 24 U/L (15-37); Albumin 3.6 g/dL (3.4-5.0); Alkaline Phosphatase 94 U/L (46-116); Anion Gap 8.3 mmol/L (3-11); BUN 15 mg/dL (7-18); Bilirubin, Total 0.2 mg/dL (0.2-1.0); CO2 25.7 mmol/L (21.0-32.0); CREATININE 0.8 mg/dL (0.70-1.30); Chloride 106 mmol/L (98-107); FREE T4 0.91 ng/dL (0.76-1.46); Glucose 122 mg/dL (74-106); Magnesium 1.9 mg/dL (1.8-2.4); Potassium 4.1 mmol/L (3.5-5.1); Sodium 140 mmol/L (136-145); TSH 0.79 uIU/mL (0.36-3.74); Total Protein 7.4 g/dL (6.4-8.2)
== END 2023-04-26 23:59 | disposition home or self-care (01) ==
LOC: INF 03:39
PROVIDERS: PCP Nurse Practitioner; Visit Provider Internal Medicine Medical Oncology
DX: Z79.899 Other long term (current) drug therapy (principal); C34.31 Malignant neoplasm of lower lobe, right bronchus or lung; Z45.2 Encounter for adjustment and management of vascular access device
CPT/HCPCS: 36591; 80053; 83735; 84439; 84443; 85025

== ENCOUNTER 2023-05-09 02:38 | Outpatient (RCR) | payer MEDICARE, SELFPAY ==
[2023-05-09] MEDS: Normal Saline Flush 10 ML SYR IVP (13:43)
[2023-05-09 13:44] LABS: Abs Immature Grans 0.02 10^3/uL (0.0-0.06); Absolute Lymphocyte Count 2.82 10^3/uL (1.2-3.4); Absolute Monocyte Count 0.52 10^3/uL (0.1-0.8); HCT 43.2 % (40.0-50.0); HGB 14.1 g/dL (13.5-17.5); Immature Grans % 0.3; Lymphocytes % 38.8; MCHC 32.6 % (32.0-36.0); MCV 89 fL (80-95); MPV 8.8 fL (8.0-11.0); Monocytes % 7.2; Neutrophils % 53.7; Platelet Count 281 10^3/uL (130-400); RBC 4.86 10^6/uL (4.36-5.78); RDW 13.9 % (11.8-14.1); RDW-SD 45.1 fL; WBC 7.26 10^3/uL (4.4-10.8)
[2023-05-09 14:15] LABS: ALT 20 U/L (16-63); AST 18 U/L (15-37); Albumin 3.5 g/dL (3.4-5.0); Alkaline Phosphatase 80 U/L (46-116); Anion Gap 6.9 mmol/L (3-11); BUN 9 mg/dL (7-18); Bilirubin, Total 0.4 mg/dL (0.2-1.0); CO2 26.1 mmol/L (21.0-32.0); CREATININE 0.8 mg/dL (0.70-1.30); Calcium 8.6 mg/dL (8.5-10.1); Chloride 106 mmol/L (98-107); FREE T4 0.82 ng/dL (0.76-1.46); Glucose 87 mg/dL (74-106); Magnesium 1.8 mg/dL (1.8-2.4); Potassium 4.1 mmol/L (3.5-5.1); Sodium 139 mmol/L (136-145); TSH 0.98 uIU/mL (0.36-3.74)
== END 2023-05-26 23:59 | disposition home or self-care (01) ==
LOC: INF 02:38
PROVIDERS: Nurse Practitioner Family; PCP Nurse Practitioner; Visit Provider Internal Medicine Medical Oncology
DX: Z79.899 Other long term (current) drug therapy (principal); C34.31 Malignant neoplasm of lower lobe, right bronchus or lung
CPT/HCPCS: 36591; 80053; 83735; 84439; 84443; 85025

== ENCOUNTER 2023-06-20 03:14 | Outpatient (RCR) | payer MEDICARE, SELFPAY ==
[2023-05-28] MEDS: Normal Saline Flush 10 ML SYR IVP (10:56)
[2023-05-28 11:23] LABS: Abs Immature Grans 0.02 10^3/uL (0.0-0.06); Absolute Lymphocyte Count 2.19 10^3/uL (1.2-3.4); Absolute Monocyte Count 0.54 10^3/uL (0.1-0.8); Absolute Neutrophil Count 6.94 10^3/uL (1.2-6.7); HCT 45.4 % (40.0-50.0); HGB 15.3 g/dL (13.5-17.5); Immature Grans % 0.2; Lymphocytes % 22.6; MCH 29.7 pg (27.0-33.0); MCHC 33.7 % (32.0-36.0); MCV 88 fL (80-95); MPV 8.9 fL (8.0-11.0); Monocytes % 5.6; Neutrophils % 71.6; Platelet Count 269 10^3/uL (130-400); RBC 5.16 10^6/uL (4.36-5.78); RDW 13.7 % (11.8-14.1); RDW-SD 44.1 fL; WBC 9.69 10^3/uL (4.4-10.8)
[2023-05-28 11:47] LABS: ALT 18 U/L (16-63); AST 17 U/L (15-37); Albumin 3.8 g/dL (3.4-5.0); Alkaline Phosphatase 96 U/L (46-116); Anion Gap 7.5 mmol/L (3-11); BUN 11 mg/dL (7-18); Bilirubin, Total 0.3 mg/dL (0.2-1.0); CO2 26.5 mmol/L (21.0-32.0); Calcium 9.5 mg/dL (8.5-10.1); Chloride 104 mmol/L (98-107); Estimated GFR 81.98 (mL/min/1.73m2); FREE T4 0.94 ng/dL (0.76-1.46); Glucose 109 mg/dL (74-106); Magnesium 1.9 mg/dL (1.8-2.4); Potassium 4.4 mmol/L (3.5-5.1); Sodium 138 mmol/L (136-145); TSH 0.79 uIU/mL (0.36-3.74); Total Protein 7.6 g/dL (6.4-8.2)
[2023-06-20] MEDS: Normal Saline Flush 10 ML SYR IVP (11:43)
[2023-06-20 11:54] LABS: Abs Immature Grans 0.03 10^3/uL (0.0-0.06); Absolute Lymphocyte Count 2.97 10^3/uL (1.2-3.4); Absolute Monocyte Count 0.44 10^3/uL (0.1-0.8); Absolute Neutrophil Count 4.61 10^3/uL (1.2-6.7); HGB 16.3 g/dL (13.5-17.5); Immature Grans % 0.4; Lymphocytes % 36.9; MCHC 34.7 % (32.0-36.0); MCV 86 fL (80-95); MPV 8.8 fL (8.0-11.0); Monocytes % 5.5; Neutrophils % 57.2; Platelet Count 283 10^3/uL (130-400); RBC 5.44 10^6/uL (4.36-5.78); RDW 13.4 % (11.8-14.1); RDW-SD 41.7 fL; WBC 8.05 10^3/uL (4.4-10.8)
[2023-06-20 12:20] LABS: ALT 21 U/L (16-63); AST 20 U/L (15-37); Albumin 4.1 g/dL (3.4-5.0); Alkaline Phosphatase 85 U/L (46-116); Anion Gap 7.6 mmol/L (3-11); BUN 10 mg/dL (7-18); Bilirubin, Total 0.4 mg/dL (0.2-1.0); CO2 26.4 mmol/L (21.0-32.0); CREATININE 0.8 mg/dL (0.70-1.30); Calcium 9.5 mg/dL (8.5-10.1); Chloride 105 mmol/L (98-107); FREE T4 1.03 ng/dL (0.76-1.46); Glucose 100 mg/dL (74-106); Potassium 3.8 mmol/L (3.5-5.1); Sodium 139 mmol/L (136-145); TSH 0.53 uIU/mL (0.36-3.74); Total Protein 7.8 g/dL (6.4-8.2)
== END 2023-06-26 23:59 | disposition home or self-care (01) ==
LOC: INF 03:14
PROVIDERS: Nurse Practitioner Family; PCP Nurse Practitioner; Visit Provider Internal Medicine Medical Oncology
DX: Z79.899 Other long term (current) drug therapy (principal); C34.31 Malignant neoplasm of lower lobe, right bronchus or lung; Z45.2 Encounter for adjustment and management of vascular access device
CPT/HCPCS: 36591; 80053; 83735; 84439; 84443; 85025

== ENCOUNTER 2023-07-09 02:11 | Outpatient (RCR) | payer MEDICARE, SELFPAY ==
[2023-07-09] MEDS: Normal Saline Flush 10 ML SYR IVP (11:05)
[2023-07-09 11:19] LABS: Abs Immature Grans 0.03 10^3/uL (0.0-0.06); Absolute Basophil Count 0.01 10^3/uL (0.0-0.2); Absolute Lymphocyte Count 2.73 10^3/uL (1.2-3.4); Absolute Monocyte Count 0.43 10^3/uL (0.1-0.8); Basophils % 0.1; HCT 45.6 % (40.0-50.0); HGB 15.4 g/dL (13.5-17.5); Immature Grans % 0.3; Lymphocytes % 29.7; MCH 29.2 pg (27.0-33.0); MCHC 33.8 % (32.0-36.0); MCV 87 fL (80-95); MPV 8.6 fL (8.0-11.0); Monocytes % 4.7; Neutrophils % 65.2; Platelet Count 307 10^3/uL (130-400); RBC 5.27 10^6/uL (4.36-5.78); RDW 13.4 % (11.8-14.1); RDW-SD 42.7 fL
[2023-07-09 11:44] LABS: ALT 25 U/L (16-63); AST 24 U/L (15-37); Albumin 3.8 g/dL (3.4-5.0); Alkaline Phosphatase 80 U/L (46-116); Anion Gap 6.7 mmol/L (3-11); BUN 11 mg/dL (7-18); Bilirubin, Total 0.3 mg/dL (0.2-1.0); CO2 27.3 mmol/L (21.0-32.0); CREATININE 0.8 mg/dL (0.70-1.30); Calcium 9.4 mg/dL (8.5-10.1); Chloride 104 mmol/L (98-107); FREE T4 0.87 ng/dL (0.76-1.46); Glucose 108 mg/dL (74-106); Potassium 4.4 mmol/L (3.5-5.1); Sodium 138 mmol/L (136-145); TSH 1.89 uIU/mL (0.36-3.74); Total Protein 7.5 g/dL (6.4-8.2)
== END 2023-07-26 23:59 | disposition home or self-care (01) ==
LOC: INF 02:11
PROVIDERS: PCP Nurse Practitioner; Visit Provider Internal Medicine Medical Oncology
DX: C34.31 Malignant neoplasm of lower lobe, right bronchus or lung (principal); Z79.899 Other long term (current) drug therapy; Z45.2 Encounter for adjustment and management of vascular access device
CPT/HCPCS: 36591; 80053; 83735; 84439; 84443; 85025

== ENCOUNTER 2023-08-22 01:06 | Outpatient (RCR) | payer MEDICARE, SELFPAY ==
[2023-07-30] MEDS: Normal Saline Flush 10 ML SYR IVP (10:47)
[2023-07-30 11:02] LABS: Abs Immature Grans 0.02 10^3/uL (0.0-0.06); Absolute Basophil Count 0.01 10^3/uL (0.0-0.2); Absolute Lymphocyte Count 2.36 10^3/uL (1.2-3.4); Absolute Monocyte Count 0.33 10^3/uL (0.1-0.8); Basophils % 0.1; HCT 45.6 % (40.0-50.0); HGB 15.4 g/dL (13.5-17.5); Immature Grans % 0.2; Lymphocytes % 28.4; MCH 29.4 pg (27.0-33.0); MCHC 33.8 % (32.0-36.0); MCV 87 fL (80-95); Neutrophils % 67.3; Platelet Count 284 10^3/uL (130-400); RBC 5.24 10^6/uL (4.36-5.78); RDW 13.7 % (11.8-14.1); RDW-SD 43.9 fL; WBC 8.32 10^3/uL (4.4-10.8)
[2023-07-30 11:38] LABS: ALT 24 U/L (16-63); AST 20 U/L (15-37); Albumin 3.7 g/dL (3.4-5.0); Alkaline Phosphatase 82 U/L (46-116); Anion Gap 9.2 mmol/L (3-11); BUN 14 mg/dL (7-18); Bilirubin, Total 0.4 mg/dL (0.2-1.0); CO2 26.8 mmol/L (21.0-32.0); CREATININE 0.9 mg/dL (0.70-1.30); Calcium 9.4 mg/dL (8.5-10.1); Chloride 102 mmol/L (98-107); Estimated GFR 93.03 (mL/min/1.73m2); FREE T4 1.06 ng/dL (0.76-1.46); Glucose 172 mg/dL (74-106); Magnesium 1.9 mg/dL (1.8-2.4); Potassium 3.7 mmol/L (3.5-5.1); Sodium 138 mmol/L (136-145); TSH 1.01 uIU/mL (0.36-3.74); Total Protein 7.4 g/dL (6.4-8.2)
== END 2023-08-26 23:59 | disposition home or self-care (01) ==
LOC: INF 01:06
PROVIDERS: PCP Nurse Practitioner; Visit Provider Internal Medicine Medical Oncology
DX: C34.31 Malignant neoplasm of lower lobe, right bronchus or lung (principal); Z79.899 Other long term (current) drug therapy; Z45.2 Encounter for adjustment and management of vascular access device
CPT/HCPCS: 36591; 80053; 83735; 84439; 84443; 85025

== ENCOUNTER 2023-09-17 03:48 | Outpatient (RCR) | payer MEDICARE, SELFPAY ==
[2023-09-17] MEDS: Normal Saline Flush 10 ML SYR IVP (10:12)
[2023-09-17 10:20] LABS: Abs Immature Grans 0.04 10^3/uL (0.0-0.06); Absolute Basophil Count 0.02 10^3/uL (0.0-0.2); Absolute Eosinophil Count 0.01 10^3/uL (0.0-0.7); Absolute Lymphocyte Count 2.48 10^3/uL (1.2-3.4); Absolute Monocyte Count 0.46 10^3/uL (0.1-0.8); Absolute Neutrophil Count 5.63 10^3/uL (1.2-6.7); Basophils % 0.2; Eosinophils % 0.1; HCT 45.2 % (40.0-50.0); HGB 15.1 g/dL (13.5-17.5); Immature Grans % 0.5; Lymphocytes % 28.7; MCH 29.7 pg (27.0-33.0); MCHC 33.4 % (32.0-36.0); MCV 89 fL (80-95); MPV 8.8 fL (8.0-11.0); Monocytes % 5.3; Neutrophils % 65.2; Platelet Count 246 10^3/uL (130-400); RBC 5.08 10^6/uL (4.36-5.78); RDW 13.7 % (11.8-14.1); RDW-SD 44.6 fL; WBC 8.64 10^3/uL (4.4-10.8)
[2023-09-17 10:52] LABS: ALT 22 U/L (16-63); AST 22 U/L (15-37); Albumin 3.8 g/dL (3.4-5.0); Alkaline Phosphatase 84 U/L (46-116); Anion Gap 9.4 mmol/L (3-11); BUN 13 mg/dL (7-18); Bilirubin, Total 0.4 mg/dL (0.2-1.0); CO2 27.6 mmol/L (21.0-32.0); CREATININE 0.9 mg/dL (0.70-1.30); Calcium 9.1 mg/dL (8.5-10.1); Chloride 103 mmol/L (98-107); Estimated GFR 93.03 (mL/min/1.73m2); FREE T4 0.96 ng/dL (0.76-1.46); Glucose 137 mg/dL (74-106); Magnesium 1.8 mg/dL (1.8-2.4); Potassium 3.8 mmol/L (3.5-5.1); Sodium 140 mmol/L (136-145); TSH 2.86 uIU/mL (0.36-3.74); Total Protein 7.3 g/dL (6.4-8.2)
== END 2023-09-26 23:59 | disposition home or self-care (01) ==
LOC: INF 03:48
PROVIDERS: Nurse Practitioner Family; PCP Nurse Practitioner; Visit Provider Internal Medicine Medical Oncology
DX: C34.31 Malignant neoplasm of lower lobe, right bronchus or lung (principal); Z79.899 Other long term (current) drug therapy
CPT/HCPCS: 36591; 80053; 83735; 84439; 84443; 85025

== ENCOUNTER 2023-11-19 04:27 | Outpatient (RCR) | payer MEDICARE, SELFPAY ==
[2023-11-19] MEDS: Normal Saline Flush 10 ML SYR IVP (10:15)
[2023-11-19 10:32] LABS: Abs Immature Grans 0.03 10^3/uL (0.0-0.06); Absolute Basophil Count 0.01 10^3/uL (0.0-0.2); Absolute Lymphocyte Count 2.61 10^3/uL (1.2-3.4); Absolute Monocyte Count 0.54 10^3/uL (0.1-0.8); Absolute Neutrophil Count 4.86 10^3/uL (1.2-6.7); Basophils % 0.1; HCT 48.8 % (40.0-50.0); HGB 16.5 g/dL (13.5-17.5); Immature Grans % 0.4; Lymphocytes % 32.4; MCH 30.2 pg (27.0-33.0); MCHC 33.8 % (32.0-36.0); MCV 89 fL (80-95); Monocytes % 6.7; Neutrophils % 60.4; Platelet Count 245 10^3/uL (130-400); RBC 5.46 10^6/uL (4.36-5.78); RDW 13.4 % (11.8-14.1); WBC 8.05 10^3/uL (4.4-10.8)
[2023-11-19 11:05] LABS: ALT 22 U/L (16-63); AST 20 U/L (15-37); Albumin 3.8 g/dL (3.4-5.0); Alkaline Phosphatase 92 U/L (46-116); Anion Gap 7.8 mmol/L (3-11); BUN 22 mg/dL (7-18); Bilirubin, Total 0.3 mg/dL (0.2-1.0); CO2 27.2 mmol/L (21.0-32.0); CREATININE 0.9 mg/dL (0.70-1.30); Calcium 8.9 mg/dL (8.5-10.1); Chloride 105 mmol/L (98-107); Estimated GFR 93.03 (mL/min/1.73m2); Glucose 116 mg/dL (74-106); Potassium 4.3 mmol/L (3.5-5.1); Sodium 140 mmol/L (136-145); TSH 2.71 uIU/Ml (0.36-3.74); Total Protein 7.4 g/dL (6.4-8.2)
== END 2023-11-25 23:59 | disposition home or self-care (01) ==
LOC: INF 04:27
PROVIDERS: Nurse Practitioner Family; PCP Nurse Practitioner; Visit Provider Internal Medicine Medical Oncology
DX: C34.31 Malignant neoplasm of lower lobe, right bronchus or lung (principal); Z79.899 Other long term (current) drug therapy
CPT/HCPCS: 36591; 80053; 83735; 84439; 84443; 85025

== ENCOUNTER 2024-02-18 02:50 | Outpatient (RCR) | payer MEDICARE, SELFPAY ==
[2024-02-18 12:39] LABS: Abs Immature Grans 0.02 10^3/uL (0.0-0.06); Absolute Basophil Count 0.01 10^3/uL (0.0-0.2); Absolute Lymphocyte Count 2.34 10^3/uL (1.2-3.4); Absolute Monocyte Count 0.44 10^3/uL (0.1-0.8); Basophils % 0.1 %; HCT 46.4 % (40.0-50.0); HGB 15.6 g/dL (13.5-17.5); Immature Grans % 0.3 %; Lymphocytes % 34.4 %; MCH 30.1 pg (27.0-33.0); MCHC 33.6 % (32.0-36.0); MCV 90 fL (80-95); MPV 9.4 fL (8.0-11.0); Monocytes % 6.5 %; Neutrophils % 58.7 %; Platelet Count 240 10^3/uL (130-400); RBC 5.18 10^6/uL (4.36-5.78); RDW 13.4 % (11.8-14.1); RDW-SD 43.8 fL; WBC 6.81 10^3/uL (4.4-10.8)
[2024-02-18 12:59] LABS: ALT 24 U/L (16-63); AST 24 U/L (15-37); Albumin 3.9 g/dL (3.4-5.0); Alkaline Phosphatase 86 U/L (46-116); Anion Gap 11.5 mmol/L (3-11); BUN 10 mg/dL (7-18); Bilirubin, Total 0.59 mg/dL (0.2-1.0); CO2 24.5 mmol/L (21.0-32.0); Calcium 9.1 mg/dL (8.5-10.1); Chloride 105 mmol/L (98-107); Estimated GFR 81.47 (mL/min/1.73m2); FREE T4 0.94 ng/dL (0.76-1.46); Glucose 106 mg/dL (74-106); Magnesium 1.8 mg/dL (1.8-2.4); Sodium 141 mmol/L (136-145); TSH 2.49 uIU/Ml (0.36-3.74); Total Protein 7.4 g/dL (6.4-8.2)
== END 2024-02-24 23:59 | disposition home or self-care (01) ==
LOC: INF 02:50
PROVIDERS: PCP Nurse Practitioner; Visit Provider Internal Medicine Medical Oncology
DX: C34.31 Malignant neoplasm of lower lobe, right bronchus or lung (principal); C78.2 Secondary malignant neoplasm of pleura; Z79.899 Other long term (current) drug therapy
CPT/HCPCS: 36415; 80053; 83735; 84439; 84443; 85025

== ENCOUNTER 2024-05-12 14:04 | Outpatient (RCR) | payer MEDICARE, SELFPAY ==
[2024-05-12] MEDS: Normal Saline Flush 10 ML SYR IVP (12:50)
[2024-05-12 14:10] LABS: Abs Immature Grans 0.03 10^3/uL (0.0-0.06); Absolute Basophil Count 0.01 10^3/uL (0.0-0.2); Absolute Monocyte Count 0.62 10^3/uL (0.1-0.8); Absolute Neutrophil Count 6.11 10^3/uL (1.2-6.7); Basophils % 0.1 %; HCT 46.1 % (40.0-50.0); HGB 15.8 g/dL (13.5-17.5); Immature Grans % 0.3 %; Lymphocytes % 30.7 %; MCH 30.4 pg (27.0-33.0); MCHC 34.3 % (32.0-36.0); MCV 89 fL (80-95); MPV 9.6 fL (8.0-11.0); Monocytes % 6.3 %; Neutrophils % 62.6 %; Platelet Count 296 10^3/uL (130-400); RBC 5.19 10^6/uL (4.36-5.78); RDW 13.1 % (11.8-14.1); RDW-SD 42.7 fL; WBC 9.77 10^3/uL (4.4-10.8)
[2024-05-12 14:31] LABS: ALT 19 U/L (16-63); AST 16 U/L (15-37); Albumin 3.7 g/dL (3.4-5.0); Alkaline Phosphatase 82 U/L (46-116); Anion Gap 7.8 mmol/L (3-11); BUN 16 mg/dL (7-18); Bilirubin, Total 0.26 mg/dL (0.2-1.0); CO2 26.2 mmol/L (21.0-32.0); CREATININE 0.9 mg/dL (0.70-1.30); Calcium 9.3 mg/dL (8.5-10.1); Chloride 106 mmol/L (98-107); Estimated GFR 92.45 (mL/min/1.73m2); Glucose 98 mg/dL (74-106); Potassium 3.7 mmol/L (3.5-5.1); Sodium 140 mmol/L (136-145); TSH 1.98 uIU/Ml (0.36-3.74); Total Protein 7.2 g/dL (6.4-8.2)
== END 2024-05-26 23:59 | disposition home or self-care (01) ==
LOC: INF 14:04
PROVIDERS: PCP Nurse Practitioner; Visit Provider Internal Medicine Medical Oncology
DX: C34.31 Malignant neoplasm of lower lobe, right bronchus or lung (principal); C78.2 Secondary malignant neoplasm of pleura; Z79.899 Other long term (current) drug therapy
CPT/HCPCS: 36591; 80053; 84439; 84443; 85025

== ENCOUNTER 2024-07-14 11:03 | Outpatient (RCR) | payer MEDICARE, SELFPAY ==
[2024-07-14 11:41] LABS: Abs Immature Grans 0.02 10^3/uL (0.0-0.06); Absolute Basophil Count 0.01 10^3/uL (0.0-0.2); Absolute Lymphocyte Count 2.64 10^3/uL (1.2-3.4); Absolute Monocyte Count 0.48 10^3/uL (0.1-0.8); Absolute Neutrophil Count 6.76 10^3/uL (1.2-6.7); Basophils % 0.1 %; HCT 48.2 % (40.0-50.0); HGB 16.1 g/dL (13.5-17.5); Immature Grans % 0.2 %; Lymphocytes % 26.6 %; MCH 29.7 pg (27.0-33.0); MCHC 33.4 % (32.0-36.0); MCV 89 fL (80-95); MPV 9.3 fL (8.0-11.0); Monocytes % 4.8 %; Neutrophils % 68.3 %; Platelet Count 311 10^3/uL (130-400); RBC 5.42 10^6/uL (4.36-5.78); RDW 13.2 % (11.8-14.1); WBC 9.91 10^3/uL (4.4-10.8)
[2024-07-14] MEDS: Normal Saline Flush 10 ML SYR IVP (11:46)
[2024-07-14 12:02] LABS: ALT 19 U/L (16-63); AST 16 U/L (15-37); Albumin 3.8 g/dL (3.4-5.0); Alkaline Phosphatase 122 U/L (46-116); Anion Gap 8.1 mmol/L (3-11); BUN 14 mg/dL (7-18); Bilirubin, Total 0.43 mg/dL (0.2-1.0); CO2 26.9 mmol/L (21.0-32.0); CREATININE 0.9 mg/dL (0.70-1.30); Calcium 9.5 mg/dL (8.5-10.1); Chloride 107 mmol/L (98-107); Estimated GFR 92.45 (mL/min/1.73m2); Glucose 121 mg/dL (74-106); Magnesium 1.9 mg/dL (1.8-2.4); Potassium 4.1 mmol/L (3.5-5.1); Sodium 142 mmol/L (136-145); Total Protein 7.5 g/dL (6.4-8.2)
== END 2024-07-26 23:59 | disposition home or self-care (01) ==
LOC: INF 11:03
PROVIDERS: Nurse Practitioner Family; PCP Nurse Practitioner; Visit Provider Internal Medicine Medical Oncology
DX: Z45.2 Encounter for adjustment and management of vascular access device; C34.31 Malignant neoplasm of lower lobe, right bronchus or lung; C78.2 Secondary malignant neoplasm of pleura
CPT/HCPCS: 36591; 80053; 83735; 85025

== ENCOUNTER 2024-08-25 10:32 | Outpatient (RCR) | payer MEDICARE, SELFPAY ==
[2024-08-25] MEDS: Normal Saline Flush 10 ML SYR IVP (10:44)
[2024-08-25 10:51] LABS: Abs Immature Grans 0.03 10^3/uL (0.0-0.06); Absolute Basophil Count 0.01 10^3/uL (0.0-0.2); Absolute Lymphocyte Count 3.19 10^3/uL (1.2-3.4); Absolute Monocyte Count 0.54 10^3/uL (0.1-0.8); Absolute Neutrophil Count 5.84 10^3/uL (1.2-6.7); Basophils % 0.1 %; HCT 47.5 % (40.0-50.0); HGB 15.7 g/dL (13.5-17.5); Immature Grans % 0.3 %; Lymphocytes % 33.2 %; MCH 29.5 pg (27.0-33.0); MCHC 33.1 % (32.0-36.0); MCV 89 fL (80-95); MPV 9.8 fL (8.0-11.0); Monocytes % 5.6 %; Neutrophils % 60.8 %; Platelet Count 264 10^3/uL (130-400); RBC 5.33 10^6/uL (4.36-5.78); RDW 13.3 % (11.8-14.1); RDW-SD 43.4 fL; WBC 9.61 10^3/uL (4.4-10.8)
[2024-08-25 11:32] LABS: ALT 18 U/L (16-63); AST 17 U/L (15-37); Albumin 3.8 g/dL (3.4-5.0); Alkaline Phosphatase 98 U/L (46-116); Anion Gap 8.9 mmol/L (3-11); BUN 12 mg/dL (7-18); Bilirubin, Total 0.43 mg/dL (0.2-1.0); CO2 26.1 mmol/L (21.0-32.0); Calcium 9.2 mg/dL (8.5-10.1); Chloride 107 mmol/L (98-107); Estimated GFR 81.47 (mL/min/1.73m2); Glucose 95 mg/dL (74-106); Potassium 4.1 mmol/L (3.5-5.1); Sodium 142 mmol/L (136-145); TSH 1.55 uIU/mL (0.36-3.74); Total Protein 7.2 g/dL (6.4-8.2)
[2024-08-25 12:03] LABS: Magnesium 1.9 mg/dL (1.8-2.4)
== END 2024-08-26 23:59 | disposition home or self-care (01) ==
LOC: INF 10:32
PROVIDERS: PCP Nurse Practitioner; Visit Provider Internal Medicine Medical Oncology
DX: C34.31 Malignant neoplasm of lower lobe, right bronchus or lung (principal); C78.2 Secondary malignant neoplasm of pleura; Z79.899 Other long term (current) drug therapy; Z45.2 Encounter for adjustment and management of vascular access device
CPT/HCPCS: 36591; 80053; 83735; 84439; 84443; 85025

== ENCOUNTER 2025-05-12 07:42 | Outpatient (RCR) | payer MEDICARE, SELFPAY ==
[2025-05-12] MEDS: Normal Saline Flush 10 ML SYR IVP (07:55)
[2025-05-12 08:29] LABS: Abs Immature Grans 0.03 10^3/uL (0.0-0.06); HCT 47.8 % (40.0-50.0); HGB 15.5 g/dL (13.5-17.5); Immature Grans % 0.3 %; MCH 28.6 pg (27.0-33.0); MCHC 32.4 % (32.0-36.0); MCV 88 fL (80-95); MPV 9.4 fL (8.0-11.0); Platelet Count 258 10^3/uL (130-400); RBC 5.42 10^6/uL (4.36-5.78); RDW 13.3 % (11.8-14.1); RDW-SD 43.4 fL; WBC 9.45 10^3/uL (4.4-10.8)
[2025-05-12 08:59] LABS: ALT 17 U/L (16-63); AST 19 U/L (15-37); Albumin 3.8 g/dL (3.4-5.0); Alkaline Phosphatase 102 U/L (46-116); Anion Gap 6.6 mmol/L (3-11); BUN 19 mg/dL (7-18); Bilirubin, Total 0.3 mg/dL (0.2-1.0); CO2 28.4 mmol/L (21.0-32.0); Calcium 9.4 mg/dL (8.5-10.1); Chloride 106 mmol/L (98-107); Glucose 117 mg/dL (74-106); Magnesium 2.0 mg/dL (1.8-2.4); Potassium 4.6 mmol/L (3.5-5.1); Sodium 141 mmol/L (136-145); TSH 1.47 uIU/mL (0.36-3.74); Total Protein 7.4 g/dL (6.4-8.2)
== END 2025-05-26 23:59 | disposition home or self-care (01) ==
LOC: INF 07:42
PROVIDERS: Nurse Practitioner Family; PCP Nurse Practitioner; Visit Provider Internal Medicine Medical Oncology
DX: C34.31 Malignant neoplasm of lower lobe, right bronchus or lung (principal); Z79.899 Other long term (current) drug therapy; Z45.2 Encounter for adjustment and management of vascular access device
CPT/HCPCS: 36591; 80053; 83735; 84439; 84443; 85025

== ENCOUNTER 2025-08-03 13:32 | Outpatient (RCR) | payer MEDICARE, SELFPAY ==
[2025-08-03 13:37] LABS: Abs Immature Grans 0.03 10^3/uL (0.0-0.06); HCT 39.1 % (40.0-50.0); HGB 12.7 g/dL (13.5-17.5); Immature Grans % 0.3 %; MCH 28.4 pg (27.0-33.0); MCHC 32.5 % (32.0-36.0); MCV 88 fL (80-95); MPV 9.3 fL (8.0-11.0); Platelet Count 360 10^3/uL (130-400); RBC 4.47 10^6/uL (4.36-5.78); RDW 13.1 % (11.8-14.1); RDW-SD 42.2 fL; WBC 9.13 10^3/uL (4.4-10.8)
[2025-08-03 13:47] LABS: Magnesium 1.9 mg/dL (1.6-2.6)
[2025-08-03 13:48] LABS: ALT 12 U/L (10-49); AST 18 U/L (<34); Albumin 4.1 g/dL (3.2-5.0); Alkaline Phosphatase 132 U/L (46-116); Anion Gap 6.3 mmol/L (3-11); BUN 10 mg/dL (9-23); Bilirubin, Total 0.20 mg/dL (0.2-1.2); CO2 28.7 mmol/L (20.0-31.0); Calcium 9.4 mg/dL (8.3-10.6); Chloride 104 mmol/L (98-107); Glucose 90 mg/dL (74-106); Potassium 4.0 mmol/L (3.5-5.1); Sodium 139 mmol/L (136-145); Total Protein 7.1 g/dL (5.7-8.2)
[2025-08-03 13:52] LABS: TSH 2.94 uIU/mL (0.55-4.78)
[2025-08-03] MEDS: Normal Saline Flush 10 ML SYR IVP (14:26)
== END 2025-08-26 23:59 | disposition home or self-care (01) ==
LOC: INF 13:32
PROVIDERS: Nurse Practitioner Family; PCP Nurse Practitioner; Visit Provider Internal Medicine Medical Oncology
DX: C34.31 Malignant neoplasm of lower lobe, right bronchus or lung (principal); Z79.899 Other long term (current) drug therapy; Z45.2 Encounter for adjustment and management of vascular access device
CPT/HCPCS: 36591; 80053; 83735; 84439; 84443; 85025